=== PATIENT | female | born 1990 | race Caucasian/White ===

== ENCOUNTER 2022-01-20 10:28 | Outpatient (CLI) | payer OTHER, SELFPAY ==
[2022-01-20 12:21] LABS: Absolute Lymphocyte Count 3.44 X10^3/uL (0.83-4.51); Absolute Neutrophil Count 5.1 X10^3/uL (2.0-7.7); Basophil# 0.05 X10^3/uL; Basophil% 0.5 % (0-1); Eosinophil# 0.12 X10^3/uL; Eosinophils% 1.3 % (0-5); Hemoglobin 13.4 g/dL (12.0-15.0); Lymphocyte # 3.44 X10^3/ul (0.83-4.51); Lymphocyte % 36.8 % (19-41); Mean Corp Hgb Conc 32.7 g/dL (32-36); Mean Corpuscular Hgb 29.3 pg (27.0-32.0); Mean Corpuscular Volume 89.5 fL (81-99); Monocyte# 0.61 X10^3/uL; Monocyte% 6.5 % (0-10); NRBC Flagged by Analyzer 0 % (0-5); Neutrophil # 5.07 X10^3/uL (2.7-7.7); Neutrophil % 54.3 % (47-70); Platelet Count 377 K/mm3 (150-450); RBC Distribution Width CV 13.3 % (11.6-14.6); RBC Distribution Width SD 43.8 fl (35.1-43.9); Red Blood Count 4.58 M/mm3 (4.2-5.4); White Blood Count 9.4 K/mm3 (4.4-11.0)
[2022-01-20 12:41] LABS: Hemoglobin A1c 5.3 % (3.8-5.6)
[2022-01-20 13:04] LABS: AST(SGOT) 17 U/L (15-37); Alanine Aminotransfer ALT/SGPT 28 U/L (13-56); Albumin, Serum 3.9 g/dL (3.2-5.0); Alkaline Phosphatase 70 U/L (45-117); Anion Gap 6 (5-15); BUN 12 mg/dL (7-18); BUN/Creat Ratio 14.5 RATIO (10-20); Calcium,Total 9.5 mg/dL (8.5-10.1); Chloride 106 mmol/L (98-107); Cholesterol 215 mg/dL (200); Creatinine, Serum 0.83 mg/dL (0.55-1.02); EST Glomerular Filtration Rate 87 mL/min (>60); Est Glom Filt Rate - Afr Amer 105 mL/min (>60); Free T3 2.6 pg/mL (2.18-3.98); Globulin 3.9 g/dL (2.2-4.2); Glucose 93 mg/dL (74-106); High Density Lipoprotein 50 mg/dL; Potassium 4.3 mmol/L (3.5-5.1); Protein, Total 7.8 g/dL (6.4-8.2); Sodium Level 138 mmol/L (136-145); T4 Free Direct 0.82 ng/dL (0.76-1.46); Thyroid Stim Hormone (TSH) 1.76 uIU/mL (0.358-3.74); Triglycerides 110 mg/dL; Very Low Density Lipoprotein 22 mg/dL (5-40)
[2022-01-20 13:09] LABS: Vitamin D,25 Hydroxy 26.8 ng/mL
== END 2022-01-20 23:59 | disposition home or self-care (01) ==
PROVIDERS: PCP Internal Medicine; Referring Provider Internal Medicine; Visit Provider Internal Medicine
DX: F32.A Depression, unspecified (principal); F41.9 Anxiety disorder, unspecified; Z13.1 Encounter for screening for diabetes mellitus; Z13.220 Encounter for screening for lipoid disorders
CPT/HCPCS: 36415; 80053; 80061; 82306; 83036; 84439; 84443; 84481; 85025

== ENCOUNTER → 2023-10-07 | Outpatient (CLI) | payer BC, SELFPAY ==
[2023-10-11 10:09] LABS: Chlamydia By Nucleic Acid AMP Negative (Negative); Gonococcus By Nucleic Acid AMP Negative (Negative)
[2023-10-11 17:07] LABS: HPV APTIMA, High Risk Negative (Negative)
== END | disposition home or self-care (01) ==
LOC: LABSPEC 12:39
PROVIDERS: Referring Provider Advanced Practice Midwife; Visit Provider Advanced Practice Midwife
DX: Z34.90 Encounter for supervision of normal pregnancy, unspecified, unspecified trimester (principal)
CPT/HCPCS: 87086; 87491; 87591; 87624; 88175; G0145

== ENCOUNTER → 2023-11-04 | Outpatient (CLI) | payer BC, SELFPAY ==
[2023-11-04 11:14] LABS: Absolute Lymphocyte Count 2.67 X10^3/uL (0.83-4.51); Absolute Neutrophil Count 6.9 X10^3/uL (2.0-7.7); Basophil# 0.05 X10^3/uL; Basophil% 0.5 % (0-1); Eosinophil# 0.11 X10^3/uL; Hematocrit 35.8 % (37-47); Hemoglobin 11.9 g/dL (12.0-15.0); Lymphocyte # 2.67 X10^3/ul (0.83-4.51); Lymphocyte % 25.1 % (19-41); Mean Corp Hgb Conc 33.2 g/dL (32-36); Mean Corpuscular Hgb 29.4 pg (27.0-32.0); Mean Corpuscular Volume 88.4 fL (81-99); Mean Platelet Vol. 9.3 fl (6.2-12.0); Monocyte# 0.73 X10^3/uL; Monocyte% 6.9 % (0-10); NRBC Flagged by Analyzer 0 % (0-5); Neutrophil # 6.88 X10^3/uL (2.7-7.7); Neutrophil % 64.8 % (47-70); Platelet Count 299 K/mm3 (150-450); RBC Distribution Width CV 13.2 % (11.6-14.6); RBC Distribution Width SD 43.1 fl (35.1-43.9); Red Blood Count 4.05 M/mm3 (4.2-5.4); White Blood Count 10.6 K/mm3 (4.4-11.0)
[2023-11-04 11:29] LABS: Hemoglobin A1c 4.9 % (3.8-5.6)
[2023-11-04 11:49] LABS: NATERA MAILED SPECIMEN
--- OUTSIDE RECORDS SUMMARY | 2023-11-04 11:51 | XMS RPT_ITS | CCD ---
Author Name Unknown Address [address] [place] [address] Organization [facility] Care Team Providers Care Student Loan Counselor Name Role Phone Oumar Amin Primary Care Provider Pcp, No Primary Care Provider Unavailabl e Pcp, No Primary Care Provider Unavailabl e Eloisa FAUSTIN, Oumar Primary Care Provider Allergies Allergy Classification Reported Allergen(s) Allergy Type Date of Onset Reaction(s) Facility (4 sources) Seasonal allergy Propensity to adverse reactions to substance 10-30-2019 [facility] Work Phone: Medications Current Medications Medication Drug Class(es) Dates Sig (Normalized) Sig (Original) acetaminophen 325 mg oral tablet (2 sources) Start: 09-22-2020 take 650 mg by mouth every six hours as needed for pain, then take 4000 mg by mouth every twenty-four hours as needed for pain 650 mg, Oral, EVERY 6 HOURS PRN, Pain Mild (1-3), Starting 09/22/20 at 2131 Maximum dose of acetaminophen is 4000 mg from all sources in 24 hours. Completed/Discontinued Medications Medication Drug Class(es) Dates Sig (Normalized) Sig (Original) azithromycin 500 mg injection (1 source) Macrolide Antimicrobial Start: 09-22-2020 End: 09-22-2020 azithromycin (ZITHROMAX) 500 MG injection azithromycin (ZITHROMAX) 500 mg in dextrose 5 % 250 mL IVPB (add-vantage) (1 source) Start: 09-22-2020 End: 09-22-2020 azithromycin (ZITHROMAX) 500 mg in dextrose 5 % 250 mL IVPB (add-vantage) ceFAZolin 2000 mg injection (3 sources) Cephalosporin Antibacterial Start: 09-22-2020 End: 09-22-2020 ceFAZolin (ANCEF) 2 g in dextrose 4 % 100 mL IVPB (premix) Problems Active Problems Problem Classification Problem Date Documented Da te Episodic/Chronic Anxiety disorders (1 source) Anxiety; Translations: [Anxiety disorder affecting , antepartum] Onset: 03-12-2020 03-12-2020 Chronic Malposition; malpresentation (2 sources) Unstable lie; Translations: [Unstable lie, single or unspecified fetus] Onset: 08-27-2020 Resolved: 2020 2020 Episodic Other complications of ; puerperium affecting management of mother (7 sources) Indication for care AND/OR intervention in labor AND/OR delivery; Translations: [Indication for care in labor and delivery, antepartum] Onset: 04-20-2019 Resolved: 09-22-2020 01-30-2020 Episodic Other complications of (2 sources) Anxiety in ; Translations: [Anxiety disorder affecting , antepartum] Onset: 03-12-2020 03-12-2020 Other nutritional; endocrine; and metabolic disorders (3 sources) Body mass index 30+ - obesity; Translations: [BMI 30.0-30.9,adult] Onset: 01-30-2020 03-05-2020 Chronic Residual codes; unclassified (2 sources) H/O: section; Translations: [S/P section] 09-22-2020 Episodic Unclassified (8 sources) Patient encounter status; Translations: [ care, antepartum] Onset: 09-07-2018 Resolved: 2020 04-26-2019 Past or Other Problems Problem Classification Problem Date Documented Da te Episodic/Chronic Abdominal pain (6 sources) Acute abdominal pain; Translations: [Right upper quadrant pain] Onset: 08-01-2018 Resolved: 11-02-2018 11-02-2018 Episodic Biliary tract disease (4 sources) Biliary colic; Translations: [Calculus of gallbladder with acute cholecystitis] Onset: 08-02-2018 Episodic Diabetes mellitus without complication (5 sources) Abnormal glucose level; Translations: [Abnormal glucose affecting ] Onset: 01-19-2019 Resolved: 04-20-2019 04-26-2019 Episodic Hepatitis (3 sources) Acute hepatitis Onset: 08-01-2018 08-01-2018 Episodic Hypertension complicating ; childbirth and the puerperium (5 sources) Hypertension complicating , childbirth and the puerperium; Translations: [Gestational hypertension] Onset: 04-20-2019 Resolved: 04-20-2019 04-26-2019 Chronic Immunizations and screening for infectious disease (5 sources) Rubella non-immune ; Translations: [Rubella non-immune status, antepartum] Onset: 10-05-2018 Resolved: 04-20-2019 04-26-2019 Episodic Other complications of (3 sources) Maternal obesity complicating , childbirth and the puerperium, antepartum Onset: 09-07-2018 Resolved: 04-20-2019 04-26-2019 Chronic Other complications of (2 sources) Maternal obesity complicating , childbirth and the puerperium, antepartum; Translations: [Obesity affecting , antepartum] Onset: 09-07-2018 Resolved: 04-20-2019 04-26-2019 Episodic Other and delivery including normal (3 sources) Delivery normal 04-20-2019 Episodic Results Test Name Value Interpretation Reference Range Facil ity Vital Signs Date Time Vital Sign Value Performing Clinician Patito denny 2020 10:34-0500 Body Temperature 98.4 [degF] [place], [place] 2020 10:34-0500 BP Diastolic 80 mm[Hg] [place], [place] 2020 10:34-0500 BP Systolic 127 mm[Hg] [place], [place] 2020 10:34-0500 Pulse (Heart Rate) 98 /min [place], [place] 2020 10:34-0500 Pulse Oximetry 98 % [place], [place] 2020 10:34-0500 Respiratory Rate 20 /min [place] 09-22-2020 11:10-0500 BMI (Body Mass Index) 37.2 kg/m2 [place], [place] 09-22-2020 11:10-0500 Body weight 95.25 kg [place], [place] 09-22-2020 11:10-0500 Height 160 cm [place], [place] 07-01-2020 08:06-0400 Body Temperature 98.2 [degF] [facility] [employer], [place] 07-01-2020 08:06-0400 BP Diastolic 69 mm[Hg] [facility] [place] 07-01-2020 08:06-0400 BP Systolic 125 mm[Hg] [facility] [place] 07-01-2020 08:06-0400 Pulse (Heart Rate) 111 /min [facility] [employer] [facility] [place] 11-07-2019 19:00-0500 Body temperature 97.9 [degF] Emmett [facility]oz[employer] Work Phone: [employer] Work Phone: 11-07-2019 18:40-0500 Diastolic blood pressure 81 mm[Hg] Emmett Pozsgay DO Work Phone: [facility] Work Phone: 11-07-2019 18:40-0500 Heart rate 65 /min Emmett Pozsgay DO Work Phone: [facility] Work Phone: 11-07-2019 18:40-0500 Respiratory rate 16 /min Emmett Pozsgay DO Work Phone: [facility] Work Phone: 11-07-2019 18:40-0500 SaO2% (BldA) [Mass fraction] 100 % Emmett Pozsgay DO Work Phone: [facility] Work Phone: 11-07-2019 18:40-0500 Systolic blood pressure 132 mm[Hg] Emmett Pozsgay DO Work Phone: [facility] Work Phone: 11-07-2019 12:36-0500 Body height 160 cm Emmett Pozsgay DO Work Phone: [facility] Work Phone: 11-07-2019 12:36-0500 Body mass index (BMI) [Ratio] 31.89 kg/m2 Emmett Pozsgay DO Work Phone: [facility] Work Phone: 11-07-2019 12:36-0500 Body weight 81.65 kg Emmett Pozsgay DO Work Phone: [facility] Work Phone: 10-30-2019 08:06-0500 Body height 160 cm Emmett Pozsgay DO Work Phone: [facility] Work Phone: 10-30-2019 08:06-0500 Body mass index (BMI) [Ratio] 31.89 kg/m2 Emmett Pozsgay DO Work Phone: [facility] Work Phone: 10-30-2019 08:06-0500 Body temperature 97.81 [degF] Emmett Pozsgay DO Work Phone: [facility] Work Phone: 10-30-2019 08:06-0500 Body weight 81.65 kg Emmett Pozsgay DO Work Phone: [facility] Work Phone: 10-30-2019 08:06-0500 Diastolic blood pressure 76 mm[Hg] Emmett Pozsgay DO Work Phone: [facility] Work Phone: 10-30-2019 08:06-0500 Heart rate 110 /min Emmett Caryzsgay DO Work Phone: [facility] Work Phone: 10-30-2019 08:06-0500 SaO2% (BldA) [Mass fraction] 99 % Emmett Pozsgay DO Work Phone: [facility] Work Phone: 10-30-2019 08:06-0500 Systolic blood pressure 110 mm[Hg] Emmett Pozsgay DO Work Phone: [facility] Work Phone: Encounters Encounter Date Encounter Type Care Provider Facility Start: 09-22-2020 End: 2020 Evaluation and management of inpatient Shaun Taylor Work Phone: [facility] Procedures Date Procedure Procedure Detail Performing Clinician Start: 09-23-2020 Blood count hemoglobin Yas Lyle Work Phone: Start: 09-22-2020 Antibody id rbc antibodies ea panel ea serum tq Yas Lyle Work Phone: Start: 09-22-2020 RHO(D) IMMUNE GLOBULIN, Yas Lyle Work Phone: Start: 09-22-2020 Antibody id rbc antibodies ea panel ea serum tq Yas Lyle Work Phone: Start: 09-22-2020 Blood count complete automated Yas Lyle Work Phone: Start: 09-22-2020 Blood typing serologic abo Yas Lyle Work Phone: Start: 07-01-2020 Glucose tolerance test gtt 3 specimens Elicia Suggsmariantrae Work Phone: Start: 07-01-2020 Blood typing serologic rh (d) Elicia Schmidt Work Phone: Start: 07-01-2020 Blood count complete auto&auto difrntl wbc Elicia Schmidt Work Phone: Start: 07-01-2020 Comprehensive metabolic panel Elicia Roxana Work Phone: Start: 07-01-2020 MANUAL DIFFERENTIAL Elicia PrajapatiGodfrey Work Phone: Start: 11-07-2019 OPERATIVE REPORT 3m Scanning Start: 11-07-2019 Urine test visual color cmprsn meths Oliverio Jose C DO Work Phone: Start: 10-30-2019 Comprehensive metabolic panel Sharon Del Real PA-C Work Phone: Start: 10-11-2019 Us abdominal real time w/image documentation Oumar Amin MD Work Phone: Start: 08-13-2015 CONVERTED CYTOLOGY GIFT CONSULTANT Anh Bermudez Work Phone: History of cholecystectomy S/P laparoscopic cholecystectomy Emmett Cueto DO Work Phone: Plan of Treatment Date Care Activity Detail Author Start: 07-09-2030 DTaP/Tdap/Td vaccine (3 - Td) DTaP/Tdap/Td vaccine (3 - Td) [place], [place] Start: 02-08-2029 DTaP/Tdap/Td vaccine (2 - Td) DTaP/Tdap/Td vaccine (2 - Td) [facility] Work Phone: Start: 09-07-2021 Cervical cancer screen Cervical cancer screen [facility] Work Phone: Start: 09-07-2021 Screening for malignant neoplasm of cervix Cervical cancer screen [place], [place] Start: 11-04-2020 End: 11-04-2020 Visit 11/04/2020 Visit Obstetrics and Gynecology Shaun Taylor MD [address] [place] [address] [phone] [facility] PRINCIPAL BIOINFORMATICS SPECIALIST Start: 07-09-2020 End: 07-09-2020 Routine 07/09/2020 Routine Obstetrics and Gynecology Elicia Schmidt APRN - INDER [address] [place] [address] [phone] [facility] PRINCIPAL BIOINFORMATICS SPECIALIST Start: 07-01-2020 Influenza vaccination [place], [place] Start: 11-21-2019 End: 11-21-2019 Patient encounter procedure 11/21/2019 Office Visit Advanced Laparoscopic Surgery Dulce Kiser PA-C [address] [place] [address] [phone] [facility] [place] [facility] Start: 11-07-2019 End: 11-07-2019 Patient encounter procedure 11/07/2019 Appointment General Surgery Emmett Cueto DO [address] [place] [address] [phone] [facility] General [facility] Start: 10-16-2019 End: 10-16-2019 Patient encounter procedure 10/16/2019 Office Visit Advanced Laparoscopic Surgery Emmett Cueto, DO [address] [place] [address] [phone] [facility] [place] [facility] Start: 07-01-2019 Influenza vaccination Flu vaccine (#1) [facility] Work Phone: Start: 08-13-2018 PAP TESTING PAP TESTING [facility] Start: 2011 ONE PNEUMOVAX PRIOR TO AGE 65 ONE PNEUMOVAX PRIOR TO AGE 65 [facility] Start: 2011 Urine microalbumin profile DTAP,TDAP,TD (1 - Tdap) [facility] Start: 2010 HEPATITIS C SCREENING HEPATITIS C SCREENING [facility] Start: 2010 HIV SCREENING HIV SCREENING [facility] Start: 1998 Pneumococcal 0-64 years Vaccine (1 of 1 - PPSV23) Pneumococcal 0-64 years Vaccine (1 of 1 - PPSV23) [facility] Work Phone: Start: 1993 Varicella vaccine (1 of 2 - 2-dose childhood series) Varicella vaccine (1 of 2 - 2-dose childhood series) [facility] Work Phone: End: 11-07-2019 Blood glucose - POCT Blood glucose - POCT Point of Care Testing STAT One Time for 1 Occurrences starting 11/07/2019 until 11/07/2019 [facility] Work Phone: Immunizations Immunization Date Immunization Notes Care Provider Fa cility 09-22-2020 diphtheria, tetanus toxoids and acellular pertussis vaccine, unspecified formulation [facility] [place], [place] 09-22-2020 measles, mumps and rubella virus vaccine [facility] [place], [place] 09-22-2020 RHO(D) immune globulin - IM [facility] [place], [place] 07-09-2020 tetanus toxoid, reduced diphtheria toxoid, and acellular pertussis vaccine, adsorbed [facility] [place], [place] 07-01-2020 RHO(D) immune globulin - [facility] [place] 04-22-2019 measles, mumps and rubella virus vaccine Oumar Amin MD Work Phone: [facility] Work Phone: 02-08-2019 tetanus toxoid, reduced diphtheria toxoid, and acellular pertussis vaccine, adsorbed Oumar Amin MD Work Phone: [facility] Work Phone: NEGATED: Highlighted row has not occurred!04-22-2019 tetanus toxoid, reduced diphtheria toxoid, and acellular pertussis vaccine, adsorbed Oumar Amin MD Work Phone: [facility] Work Phone: Payers Date Payer Category Payer Unknown BCBS BCBS OUT OF STATE [id number] 2018-Present [address] [place] [address] [id number] 2018 Unknown BCBS BCBS OUT OF STATE xxxxxxxxxxxx 2018-Present [address] [place] [address] xxxxxxxxxxxx [id number] Social History Date Type Detail Facility Start: 06-06-2020 End: 09-22-2020 Tobacco [facility] Start: 06-06-2020 End: 09-22-2020 Tobacco use and exposure [facility] Start: 06-06-2020 End: 09-22-2020 Alcohol intake Ex-drinker (finding) [facility] Start: 10-04-2019 History SDOH Physica l Activity DPW 0 [facility] Work Phone: Start: 10-04-2019 History SDOH Stress 3 [facility] Work Phone: Start: 10-04-2019 History SDOH Education 17 [facility] Work Phone: Start: 10-04-2019 History SDOH Financial 5 [facility] Work Phone: Start: 10-04-2019 History SDOH Food Worry 1 [facility] Work Phone: Start: 10-04-2019 History SDOH Transpo rt Med 2 [facility] Work Phone: Start: 10-30-2019 Tobacco Comment occassional [employer] [facility] Work Phone: Start: 02-20-2018 Alcohol Comment socially [facility] Work Phone: Start: 01-01-2020 [facility] At Female [place] Sex Assigned At Not on file [facility] Work Phone: Exposure to SARS-CoV -2 (event) [facility] sure [facility] Start: 10-04-2019 Tobacco smoking stat [facility] Never smoker [employer] Work Phone: Start: 10-04-2019 End: 11-07-2019 Alcohol intake Current drinker of alcohol (finding) [employer] [facility] Work Phone: Start: 10-30-2019 End: 11-07-2019 Tobacco smoking status AKIS Current some day smoker [facility] Work Phone: Goals Date Patient Goal Desired Activity /State History of Present illness Narrative 11-07-2019 Rebecca Ramirez RN - 11/07/2019 7:14 PM Rebecca Witt RN - 11/07/2019 6:37 PM Meggan Peters RN - 11/07/2019 5:39 PM Meggan Peters RN - 11/07/2019 5:20 PM EST Note Date & Type Note Facility 11-07-2019 History of Present illness Narrative Discharge information given to the patient. Patient and family verbalized understanding of information. All questions were answered before discharge. Patient ambulated, denies dizziness or nausea. Tolerating PO fluids and crackers. Vital signs are stable. Patient has changed and is being discharged home in a wheelchair with valuables. Patient ambulated to bathroom, became nauseated. Paitent returned to bed without complicaions. Tolerating PO fluids and crackers. Vital signs are stable. Reviewed discharge instructions with pt and pt's . Verbalized understanding. Prescriptions given. back to bedside. Pt arrived to doctors hospital room 36 from OR. Assessed, vitals monitored and placed on tele. Pt able to communicate and follow commands. Pt asking if she can pump, family went downstairs to get pump at this time documented in this encounter [facility] Work Phone: Hospital Discharge instructions 11-07-2019 Instructions Note Date & Type Note Facility 11-07-2019 Hospital Discharg e instructions Luis Sol MD - 11/07/2019 DISCHARGE INSTRUCTIONS Thank you very much for allowing me to participate in your care, it is truly a privilege. Below please see discharge orders that will help you during your recovery. Please do not hesitate to call the office during the day at [phone] for any questions. After hours, the same number will allow you to reach the on-call surgeon. Please leave steri strips in place - despite what other paperwork may state. Clear bandages and gauze placed in the navel, if applicable may be removed in 5 days. If you have been provided with an abdominal binder, this is for your comfort. Please take this off in order to shower and use it as needed for your comfort. There is no designated time frame with which you should wear the binder. Again, it is only for your comfort and symptom relief. A thin shirt on your skin, under the binder, may add additional comfort and may help prevent skin irritation. It is OK to wash the binder Do not lift anything that is 15-20 pounds or greater for 2 weeks from the date of your surgery. This is to prevent herniation at your incision sites. We will address lifting restrictions at your first post op visit. Please shower the day after surgery. Soap and water is adequate. Steri strips may get wet. Pat incisions dry after showering. No lotions or ointments until you are seen in the office. Do not swim in a pool, go in a hot tub, or soak in a bathtub for the first week after your surgery. Surgery can hurt! Please make every effort to take the pain medicine as instructed to help reduce your discomfort. If you are a full sized adult and do not have a contraindication to taking tylenol or ibuprofen you can take a combination of these medicines as follows: 1000 mg Tylenol and 600 mg ibuprofen every 8 hours. I recommend that you do this combination every 8 hours for the first 3-5 days after your surgery even in the event that you do not have discomfort. Surgery is an inflammatory process and these medications will help decrease inflammation and pain. Do not wait until you have pain to take the combination of medications, it is hard to catch up once the pain begins. If you are prescribed [place] (vicodin) or Percoet, please note that these medications have tylenol in them. If you take a percocet simply do not take the 1000 mg tylenol, you may still take the ibuprofen. If you feel that the medicine is not working, please call the office. NO driving or operating dangerous machinery while taking Narcotics. Ice the incisions sites for 10-15 minutes at a time, then allowing 30 minutes for the skin to warm up. Continuous ice may cause damage to the skin. You may have had a TAP block. This is a numbing medication that the anesthesia team may have given you preoperatively. This block is great at reducing post operative pain, however, it may only last 24-48 hours. Again, I recommend that you take the combination of 1000 mg tylenol and 600 mg ibuprofen every 8 hours in order to ease into the transition of the TAP block wearing off. Should you have nausea after surgery you may have been prescribed nausea medication. Try taking the medicine and if you feel that the medicine is not working, please call the office. For any emergencies, please dial 911. Thank you again for allowing me to participate in your care, and get well soon! Dr. Emmett Cueto documented in this encounter [facility] Work Phone: Hospital Discharge instructions 10-30-2019 InstructionsAttachments Note Date & Type Note Facility 10-30-2019 Hospital Discharg e Brittney Martines RN - 10/30/2019 Shower with an antibacterial soap such as Dial or Safeguard. Please bring your [facility] Surgical Information folder on the day of surgery. Please emmett the last dose taken (date and time ) on your Daily Medications List provided in your After Visit Summary. Please bring a photo ID and insurance information TAKE the following medications the morning of your surgery: NONE You may take your prescription pain medications. You may take Tylenol (Acetaminophen) if needed for pain. No Motrin, Ibuprofen, or Advil 24 hours prior to surgery, or longer if instructed by your surgeon. No Aleve or Naprosyn 3 days prior to surgery, or longer if instructed by your surgeon. Do not take aspirin or aspirin containing products for 5 days before surgery. Follow all instructions given to you by Dr. NEWMAN You will receive a reminder call the day before surgery with your Same Day Surgery arrival time. If you have specific questions, please call your surgeon. You may use the free lpc parking at the main entrance on [address] [place] [address], or the free parking in the [facility] parking deck Please take the H elevator to the first floor- Same Day Surgery The following attachments cannot be sent through Care Everywhere.Cholecystectomy: Pre-op (Slovenian)documented in this encounter [facility] Work Phone: History of Present illness Narrative 10-30-2019 Mable Serrano MA - 10/30/2019 8:00 AM EST Note Date & Type Note Facility 10-30-2019 History of Present illness Narrative Labs obtained on 1st attempt with 22 gauge needle at [facility] site. Patient tolerated well, site benign. documented in this encounter [facility] Work Phone: Evaluation note Note Date & Type Note Facility documented in this encounter [facility] Work Phone: Evaluation note Note Date & Type Note Facility documented in this encounter [facility] Work Phone: Evaluation note Note Date & Type Note Facility documented in this encounter [facility] Work Phone: Summary Purpose Family History No Family History Records FoundNo Family History Records Found Advance Directives Documents on File Type Date Recorded Patient Clerical Assigner Expl anation ACP-Advance Directive ACP-Power of Rotary Soil Stabilizer Operator Latest Code Status on File Code Status Date Activated Date Inactivated Comments Full Code 11/07/2019 12:18 PM 11/07/2019 9:32 PM Full Code 04/21/2019 12:14 AM 04/22/2019 2:05 PM Full Code 04/20/2019 3:08 AM 04/21/2019 12:06 AM Full Code 08/01/2018 8:12 PM 08/02/2018 6:38 PM Latest Code Status on File Code Status Date Activated Date Inactivated Comments Full Code 09/22/2020 9:31 PM Full Code 09/22/2020 9:18 PM 09/22/2020 9:31 PM Full Code 09/22/2020 9:28 AM 09/22/2020 9:18 PM Full Code 11/07/2019 12:18 PM 11/07/2019 9:32 PM Documents on File Type Date Recorded Patient Clerical Assigner Expl anation Advance Directives and Living Will Power of Rotary Soil Stabilizer Operator Latest Code Status on File Code Status Date Activated Date Inactivated Comments Full Code 04/21/2019 12:14 AM 04/22/2019 2:05 PM Full Code 04/20/2019 3:08 AM 04/21/2019 12:06 AM Full Code 08/01/2018 8:12 PM 08/02/2018 6:38 PM Documents on File Type Date Recorded Patient Clerical Assigner Expl anation Advance Directives and Living Will Power of Rotary Soil Stabilizer Operator Latest Code Status on File Code Status Date Activated Date Inactivated Comments Full Code 04/21/2019 12:14 AM 04/22/2019 2:05 PM Latest Code Status on File Code Status Date Activated Date Inactivated Comments Full Code 11/07/2019 12:18 PM Hospital Course Note Obstetric Discharge Summary Fanta Patrick 09/22/2020 Reasons for Admission on 09/22/2020 8:49 AM Labor and delivery indication for care or intervention [O75.9] No comment available Section (Primary) Surgical Operations & Procedures: Delivery Type: with labor Laceration(s): n/a Delivery Complications: none Pertinent Findings & Procedures: Information for the patient's : Reno Patrick [[id number]] male Weight: 7 lb 10 oz (3.459 kg) Apgars: Information for the patient's : Reno Patrick [[id number]] One Minute : 8 Five Minute : 9 course normal. Blood Type/Rh: No results found for: ABORH Antibody Screen: Antibody Screen Date Value Ref Range Status 09/22/2020 POS NA Final Rubella: Lab Results Component Value Date RUBELLAIGG 69.9 03/05/2020 Discharge to: Home Contraception: no method : yes Meds: Fanta Patrick Home Medication Instructions DARREN:[id number] Printed on:09/24/20 1436 Medication Information docusate (more content not included)... Note OPERATIVE NOTE DATE OF PROCE DURE: 11/07/19 SURGEON: Emmett Cueto PHOTOCOPIER TECHNICIAN: resident PREOPERATIVE DIAGNOSIS: Chronic cholecystitis, cholelithiasis. POSTOPERATIVE DIAGNOSIS: Same, plus chronic cholecystitis OPERATION: Laparoscopic cholecystectomy ANESTHESIA: General anesthesia ESTIMATED BLOOD LOSS: less than 50 COMPLICATIONS: None SPECIMENS: Gallbladder PREOPERATIVE MEDICATIONS: ancef HISTORY: The patient is a 29 y.o. year old female with history of above preop diagnosis. I explained the risk, benefits, expected outcome, and alternatives to the procedure. Patient understands and is in agreement to proceed with operation. PROCEDURE: The patient was brought to the operating room and placed in supine position. After initiation of general anesthesia by the Anesthesia Department, the abdomen was prepped and draped normal sterile fashion. A Veress needle was placed in the left upper quadrant and insufflated without difficulty. We placed four 5 mm trocars, one in the left upper quadrant, 2 in t (more content not included)... Procedure Findings Note OPERATIVE NOTE DATE OF PROCE DURE: 11/07/19 SURGEON: Emmett Cueto PHOTOCOPIER TECHNICIAN: resident PREOPERATIVE DIAGNOSIS: Chronic cholecystitis, cholelithiasis. POSTOPERATIVE DIAGNOSIS: Same, plus chronic cholecystitis OPERATION: Laparoscopic cholecystectomy ANESTHESIA: General anesthesia ESTIMATED BLOOD LOSS: less than 50 COMPLICATIONS: None SPECIMENS: Gallbladder PREOPERATIVE MEDICATIONS: ancef HISTORY: The patient is a 29 y.o. year old female with history of above preop diagnosis. I explained the risk, benefits, expected outcome, and alternatives to the procedure. Patient understands and is in agreement to proceed with operation. PROCEDURE: The patient was brought to the operating room and placed in supine position. After initiation of general anesthesia by the Anesthesia Department, the abdomen was prepped and draped normal sterile fashion. A Veress needle was placed in the left upper quadrant and insufflated without difficulty. We placed four 5 mm trocars, one in the left upper quadrant, 2 in t (more content not included)... Discharge Instructions * Instructions* Krysten Kong, RN - 2020 After Your Delivery (the Period): Your Care Instructions Thank you for allowing us to care of you at [facility]. This time can be one of many emotional ups and downs and many changes in your life. In these first weeks try to take good care of yourself because you will likely feel very tired. It may take 4 to 6 weeks to feel like yourself again, and possibly longer if you had a . FOLLOW-UP: Your follow-up care is a jimenez part of your treatment and safety. Follow-up with your OB providerin 4weeks or as specified by your OB provider. If you had high blood pressure, visit your OB provider within 3-5 days after being home. Most women's blood pressure will return to pre- levels after delivery. However, some patients continueto have problems with their blood pressure, and some even get worse. Very high blood pressure can lead to seizures or stroke which can be life threatening. If ordered by your doctor, take your blood pressure at home and call your OB provider if you have a high reading. Your doctor can write you a prescription for a blood pressure monitor if you do not have one Be sure to make and go to all appointments, and call your OB provider if you are having problems. It's also a good idea to know your test results and keep a list of the medicines you take. BLEEDING Vaginal bleeding will decrease in amount over the next few weeks. Bleeding may strip picker and then decrease again around 7-10 days . Use pads instead of tampons for the bloody flow that may last as long as 2 weeks. You will notice that as your activity increases, your flow may increase. Call your provider if you are saturating one maxi pad in an hour & passing large clots for 3 hours or more. ACTIVITY NO SEXUAL activity for 6 weeks or until advised by your OB provider; Nothing in vagina: intercourse, tampons, or douching. Begin to think about your reproductive life plan. Talk to your OB provider about if and when you would like another baby in the future. The recommendation for safe spacing is 18-24 months. Showering is okay; NO tub baths, swimming, or hot tubs. Gradually increase your activity. Resume exercise regimen only after advised by your )OB provider. Avoid lifting anything heavier than ten pounds or a gallon of milk for six weeks. Avoid driving 1 week for vaginal delivery and 2 weeks for section, or longer if you are onprescription pain medicine unless otherwise instructed by your OB provider . Rise slowly from a lying to sitting and then a standing position. Climb stairs carefully. You may feel tired or have a lack of energy. You may continue your vitamin to replenish nutrients post-delivery. Nap when whenever you can to catch up on sleep. EMOTIONS You may feel simpson, sad, teary, & overwhelmed for the first 2 weeks ; however, feelings of depression may occur any time within the first year after delivery. Contact your OBprovider if you feel you may be showing signs of depression, or have thoughts of harmingyourself or or anyone.. WOUND CARE For Vaginal Delivery: Shower daily, and cleanse your perineum (bottom) with mild soap from front to back. Use the plasticsquirt bottle until bleeding stops each time you use the restroom instead of wiping with toilet paper. Ease soreness of hemorrhoids and the area between your vagina and rectum with ice compresses or witch elieser pads. If used, stitches will dissolve in 4-6 weeks on their own. You may use a sitz bath or soak in a clean tub with drain open and water running for comfort. Kegel exercises will help restore bladder control. To do these tighten your muscles as if you were stopping your urine flow. Hold for a few seconds and then relax. Do these throughout the day. For Section Delivery: Keep your incision clean and dry. If you had steri-strips you may remove these once they start falling off. If you have lia they need to be removed 3-10 daysafter delivery. If you have steri-strips, remove after 7 - 10 days. Do not wear clothing that irritates the incision line. If your incision is in a crease that is not dry, use a hair-dryer to dry the area 3 times a day. If you develop fever, shaking chills, redness, swelling, drainage or discharge from your wound, or if your wound looks like it is coming apart call your provider immediately. BREAST CARE If you develop a warm, red, tender area on your breast or develop a fever contact your OB provider.If your breasts become engorged ask your provider because treatment can vary according to your needs. DIET & CONSTIPATION Eat a well-balanced diet focusing on foods high in fiber and protein such as: whole grain cereals and breads, fruits and vegetables and legumes (eg, beans, lentils) Drink 8-10 glasses of fluids daily, especially water. Limit caffeine. To avoid constipation you may take a mild cszu-[id number]-[id number] stool softener (such as colace) as recommended by your OB provider. SWELLING Try to keep your legs elevated when you are sitting or lying down. Stay hydrated and take walks. If you had high blood pressure, weigh yourself at the same time each day. Write down your weight and take the record to your doctor appointment. MEDICATIONS Take all medications prescribed for you exactly as ordered. Don't take any drugs not prescribed to you or over the counter medicines unless recommended by yourprovider. Don't smoke. WHEN TO CALL THE OB PROVIDER Signs of infection, including fever and chills Increased bleeding: soaking more than one pad an hour or passing clots the size of an egg or larger. Wounds that become red, swollen or drain pus Vaginal discharge that smells foul New pain, swelling, or tenderness in your legs Pain that you can't control with the medications you've been given Pain, burning, urgency or frequency of urination, or persistent bleeding in the urine Cough, shortness of breath, or serious difficulty catching your breath Chest pain or pain in the upper right area of your belly Headache (very painful) or vision changes like blurry or double vision, seeing spots or 'auras' Swelling that is worse or weight gain of more than 3 pounds in 3 days Depression, suicidal thoughts, or feelings of harming someone else Breasts that are hot, red and accompanied by fever Any cracking or bleeding from the nipple or areola (the dark-colored area of the breast) You may have been given a magnet like this: If so, we encourage you to use it on your refrigerator as a reminder of when to call your OB provider. In case of an emergency, call 911 immediately. If you are Covid-19 positive or a Person Under Investigation (PUI) These could be signs that your COVID-19 symptoms are worsening and you may need emergency care: You are severely dizzy or lightheaded. You are confused or can't think clearly. Your face and lips have a blue color. You are unable to respond to others or are very hard to wake up. Prevention steps for People with confirmed or suspected COVID-19 (including persons under investigation) who do not need to be hospitalized and People with confirmed COVID-19 who were hospitalized and determined to be medically stable to go home Your healthcare provider and public health staff will evaluate whe ther you can be cared for at home. If it is determined that you do not need to be hospitalized and can be isolated at home, you willbe monitored by staff from your local or state health department. You should follow the prevention steps below until a healthcare provider or local or state health department says you can return to your normal activities. Stay home except to get medical care People who are mildly ill with COVID-19 are able to isolate at home during their illness. You should restrict activities outside your home, except for getting medical care. Do not go to work, school,or public areas. Avoid using public transportation, ride-sharing, or taxis. Separate yourself from other people and animals in your home People: As much as possible, you should stay in a specific room and away from other people in your home. Also, you should use a separate bathroom, if available. Animals: You should restrict contact with pets and other animals while you are sick with COVID-19, just like you would around other people. Although there have not been reports of pets or other animals becoming sick with COVID-19, it is still recommended that people sick with COVID-19 limit contactwith animals until more information is known about the virus. When possible, have another member ofyour household care for your animals while you are sick. If you are sick with COVID-19, avoid contact with your pet, including petting, snuggling, being kissed or licked, and sharing food. If you must care for your pet or be around animals while you are sick, wash your hands before and after you interact with pets and wear a facemask. Call ahead before visiting your provider If you have a medical appointment, call the healthcare provider and tell them that you have or may have COVID-19. This will help the healthcare provider's office take steps to keep other people from getting infected or exposed. Wear a facemask You should wear a facemask when you are around other people (e.g., sharing a room or vehicle) or pets and before you enter a healthcare provider's office. If you are not able to wear a facemask (for example, because it causes trouble breathing), then people who live with you should not stay in the same room with you, or they should wear a facemask if they enter your room. Cover your coughs and sneezes Cover your mouth and nose with a tissue when you cough or sneeze. Throw used tissues in a lined trash can. Immediately wash your hands with soap and water for at least 20 seconds or, if soap and water are not available, clean your hands with an alcohol-based hand wellness consultant that contains at least 60% alcohol. Clean your hands often Wash your hands often with soap and water for at least 20 seconds, especially after blowing your nose, coughing, or sneezing; going to the bathroom; and before eating or preparing food. If soap and water are not readily available, use an alcohol-based hand wellness consultant with at least 60% alcohol, covering all surfaces of your hands and rubbing them together until they feel dry. Soap and water are the best option if hands are visibly dirty. Avoid touching your eyes, nose, and mouth with unwashed hands. Avoid sharing personal household items You should not share dishes, drinking glasses, cups, eating utensils, towels, or bedding with otherpeople or pets in your home. After using these items, they should be washed thoroughly with soap and water. Clean all high-touch surfaces everyday High touch surfaces include counters, tabletops, doorknobs, bathroom fixtures, toilets, phones, keyboards, tablets, and bedside tables. Also, clean any surfaces that may have blood, stool, or body fluids on them. Use a household cleaning spray or wipe, according to the label instructions. Labels contain instructions for safe and effective use of the cleaning product including precautions you should take when applying the product, such as wearing gloves and making sure you have good ventilation during use of the product. Monitor your symptoms Seek prompt medical attention if your illness is worsening (e.g., difficulty breathing). Before seeking care, call your healthcare provider and tell them that you have, or are being evaluated for, COVID-19. Put on a facemask before you enter the facility. These steps will help the healthcare provider's office to keep other people in the office or waiting room from getting infected or exposed. Askyour healthcare provider to call the local or formerly [facility] health department. Persons who are placed underactive monitoring or facilitated self- monitoring should follow instructions provided by their localhealth department or occupational health professionals, as appropriate. When working with your local health department check their available hours. If you have a medical emergency and need to call 911, notify the dispatch personnel that you have, or are being evaluated for COVID-19. If possible, put on a facemask before emergency medical services arrive. Discontinuing home isolation Patients with confirmed COVID-19 should remain under home isolation precautions until the risk of secondary transmission to others is thought to be low. The decision to discontinue home isolation precautions should be made on a [id number] basis, in consultation with healthcare providers and [facility] health departments. Information on COVID-19 for all patients Call your provider before your next appointment if you develop any of the following symptoms: fever, cough, fatigue, anorexia, shortness of breath, sputum production, and muscle pains. Headache, confusion, rhinorrhea, sore throat, hemoptysis, vomiting, and diarrhea have been reported but are less common. Some persons with COVID-19 have experienced gastrointestinal symptoms such as diarrhea and nausea prior to developing fever and lower respiratory tract signs and symptoms. Ways to Ozone with Anxiety & Stress It is normal to feel anxious or worried about COVID-19. You might feel sad about canceling celebrations and staying away from family and friends. Keep in mind that most people do not get severely ill from COVID-19. It is important to have a planin case you get sick to prevent spreading the disease to others including an Advanced Care Plan (communicating and documenting your desired health care plan with family and healthcare team). You can take care of yourself by: ? Taking a break from watching the news ? Take deep breaths, stretch or meditate ? Getting exercise, eating healthy foods, and drinking plenty of water ? Finding activities you can enjoy inside your home ? Staying in touch with your family and friends. Tell your partner, family, and friends how you arefeeling. Advance Care Planning People with COVID-19 may have no symptoms, mild symptoms, such as fever, cough, and shortness of breath or they may have more severe illness, developing severe and fatal pneumonia. As a result, Advance Care Planning with attention to naming a health care decision maker (someone you trust to make healthcare decisions for you if you could not speak for yourself) and sharing other health care preferences is important BEFORE a possible health crisis. Please contact your Primary Care Provider to discuss Advance Care Planning. Learning About Coronavirus (COVID-19) Coronavirus (COVID-19): Overview What is coronavirus (COVID-19)? The coronavirus disease (COVID-19) is caused by a virus. It is an illness that was first found in [facility], in September 2019. It has since spread worldwide. The virus can cause fever, cough, and trouble breathing. In severe cases, it can cause pneumonia and make it hard to breathe without help. It can cause . Coronaviruses are a large group of viruses. They cause the common cold. They also cause more serious illnesses like [place] respiratory syndrome (MERS) and severe acute respiratory syndrome (SARS). COVID-19 is caused by a novel coronavirus. That means it's a new type that has not been seen in people before. This virus spreads aiviaw-jo-rswlhu through droplets from coughing and sneezing. It can also spreadwhen you are close to someone who is infected. It is always good practice to clean high touch surfaces frequently and avoid touching your mouth, nose and eyes until you have washed your hands if you touched these areas. What can you do to protect yourself from coronavirus (COVID-19)? The best way to protect yourself from getting sick is to: Wear a face mask. Avoid areas where there is an outbreak. Avoid contact with people who may be infected. Wash your hands often with soap or alcohol-based hand sanitizers. Avoid crowds and try to stay at least 6 feet away from other people. Wash your hands often, especially after you cough or sneeze. Use soap and water, and scrub for at least 20 seconds. If soap and water aren't available, use an alcohol-based hand wellness consultant. Call 911 anytime you think you may need emergency care. For example, call if: You have severe trouble breathing. (You can't talk at all.) You have constant chest pain or pressure. You are severely dizzy or lightheaded. You are confused or can't think clearly. Your face and lips have a blue color. You pass out (lose consciousness) or are very hard to wake up. Call your OB Provider now if you develop symptoms such as: Shortness of breath. Fever. Cough. If you need to get care, call ahead to the provider's office for instructions before you go. Make sure you wear a face mask, to prevent exposing other people to the virus. Where can you get the latest information? The following health organizations are tracking and studying this virus. Their websites contain themost up-to-date information. You'll also learn what to do if you think you may have been exposed tothe virus. U.[place]. Centers for Disease Control and Prevention (CDC): The CDC provides updated news about the disease and travel advice. The website also tells you how to prevent the spread of infection. www.cdc.gov World Health Organization (WHO): WHO offers information about the virus outbreaks. WHO also has travel advice. www.who.int Current as of: January 30, 2020 Content Version: 12.4 [employer]. Care instructions adapted under license by your healthcare professional. If you have questions about a medical condition or this instruction, always ask your healthcare professional. [employer] disclaims any warranty or liability for your use of this information. General Recommendations for Routine Cleaning and Disinfection of Households Community members can practice routine cleaning of frequently touched surfaces (for example: tables, doorknobs, light switches, handles, desks, toilets, faucets, sinks) with household chemical reclamation equipment operator and EPA-registered disinfectants that are appropriate for the surface, following label instructions. Labels contain instructions for safe and effective use of the cleaning product including precautions you should take when applying the product, such as wearing gloves and making sure you have good ventilation during use of the product. These guidelines are focused on household settings and are meant for the general public. ? Cleaning refers to the removal of germs, dirt, and impurities from surfaces. Cleaning does not kill germs, but by removing them, it lowers their numbers and the risk of spreading infection. ? Disinfecting refers to using chemicals to kill germs on surfaces. This process does not necessarily clean dirty surfaces or remove germs, but by killing germs on a surface after cleaning, it can further lower the risk of spreading infection. General Recommendations for Cleaning and Disinfection of Households with People Isolated in Home Care - Confirmed or suspected COVID 19 ? Household members should educate themselves about COVID-19 symptoms and preventing the spread of COVID-19 in homes. ? Clean and disinfect high-touch surfaces daily in household common areas (e.g. tables, hard-backedchairs, doorknobs, light switches, remotes, handles, desks, toilets, sinks) o In the bedroom/bathroom dedicated for an ill person: consider reducing cleaning frequency to as-needed (e.g., soiled items and surfaces) to avoid unnecessary contact with the ill person. ? As much as possible, an ill person should stay in a specific room and away from other people in their home. ? The caregiver can provide personal cleaning supplies for an ill person's room and bathroom, unless the room is occupied by child or another person for whom such supplies would not be appropriate. These supplies include tissues, paper towels, chemical reclamation equipment operator and EPA-registered disinfectants (see list link at CDC website). ? If a separate bathroom is not available, the bathroom should be cleaned and disinfected after each use by an ill person. If this is not possible, the caregiver should wait as long as practical after use by an ill person to clean and disinfect the high-touch surfaces. How to clean and disinfect: Hard Surfaces ? Wear disposable gloves when cleaning and disinfecting surfaces. Gloves should be discarded after each cleaning. If reusable gloves are used, those gloves should be dedicated for cleaning and disinfection of surfaces for COVID-19 and should not be used for other purposes. Consult the paint grinder's instructions for cleaning and disinfection products used. Clean hands immediately after gloves areremoved. ? If surfaces are dirty, they should be cleaned using a detergent or soap and water prior to disinfection. ? For disinfection, diluted household bleach solutions, alcohol solutions with at least 70% alcohol, and most common EPA-registered household disinfectants should be effective. o Diluted household bleach solutions can be used if appropriate for the surface. Follow paint grinder's instructions for application and proper ventilation. Check to ensure the product is not past itsexpiration date. Never mix household bleach with ammonia or any other cleanser. Unexpired householdbleach will be effective against coronaviruses when properly diluted. ? Prepare a bleach solution by mixing: ? 5 tablespoons (1/3rd cup) bleach per gallon of water or ? 4 teaspoons bleach per quart of water o Products with EPA-approved emerging viral pathogens [facility] ic[facility]xternal icon are expected to be effective against COVID-19 based on data for harder to kill viruses. Follow the paint grinder's instructions for all cleaning and disinfection products (e.g., concentration, application method and contact time, etc.). Soft (porous) surfaces such as carpeted floor, rugs, and drapes Remove visible contamination if present and clean with appropriate chemical reclamation equipment operator indicated for use on these surfaces. After cleaning: Launder items as appropriate in accordance with the paint grinder's instructions. If possible, launder items using the warmest appropriate water setting for the items and dry items completely, or Clothing, towels, linens and other items that go in the laundry ? Wear disposable gloves when handling dirty laundry from an ill person and then discard after eachuse. If using reusable gloves, those gloves should be dedicated for cleaning and disinfection of surfaces for COVID-19 and should not be used for other household purposes. Clean hands immediately after gloves are removed. o If no gloves are used when handling dirty laundry, be sure to wash hands afterwards. o If possible, do not shake dirty laundry. This will minimize the possibility of dispersing virus through the air. o Launder items as appropriate in accordance with the paint grinder's instructions. If possible, launder items using the warmest appropriate water setting for the items and dry items completely. Dirtylaundry from an ill person can be washed with other people's items. o Clean and disinfect clothes hampers according to guidance above for surfaces. If possible, consider placing a garbage stoker that is either disposable (can be thrown away) or can be laundered. [facility] [place] 2[place] has a list of EPA approved cleaning products on their website - https://www.cdc.gov/coronavirus/ 2019-ncov/community/home/cleaning-disinfection.html https://www.[employer]/Gaqul-Tneddyzohcd-Nagfubzt-Products-List.pdf Grocery Stores with delivery and strip picker services: [employer]: Free strip picker at locations Delivery is $12.95 a month Website - [employer] [place]: Hvac Controls Technician $2.95 (1st order is free) Delivery is $14.95 Website - [employer] [place]: liquefaction supervisor is free Delivery is $5.95 Website [employer]: liquefaction supervisor is $4.95 Delivery is $9.95 Website [employer]: liquefaction supervisor is $4.95 Delivery is $9.95 [employer]: Can be ordered for delivery and strip picker with [employer] Website - [employer]: Free deliver for first 3 orders of $35 or more Website [email or web address] Will deliver from [facility], [facility], [employer], and [employer]. Annual membership is $99 Monthly membership is $14 documented in this encounter History of Present Illness * Lori Solo DTR - 2020 10:32 AM EST Nutrition rescreen completed. Patient assigned a level 1. * Yvette Wagner MD - 2020 5:47 AM EST POST OPERATIVE DAY # 2 Fanta Patrick is a 30 y.o. female This patient was seen & examined today. Her was complicated by: Patient Active Problem List Diagnosis BMI 30.0-30.9,adult Anxiety disorder affecting , antepartum Plans CNM delivery Unstable lie S/P section Today she is doing well without any chief complaint. Her lochia is light. She denies chest pain, shortness of breath, headache, blurred vision and fever or cihlls. She is ambulating well. Flatus present. Bowel movement absent. Voiding spontaneously. She is tolerating solids. Pain is controlled yes. Vital Signs: Vitals: 09/23/20 0402 09/23/20 0757 09/23/20 1202 09/23/208 BP: (!) 100/58 (!) 96/56 (!) 98/58 115/78 Pulse: 92 93 73 89 Resp: 18 18 16 Temp: 98.3 F (36.8 C) 98.3 F (36.8 C) 98.4 F (36.9 C) 98.1 F (36.7 C) TempSrc: Temporal Temporal Temporal Temporal SpO2: 95% 95% 99% 98% Weight: Height: Urine Input & Output last 24hrs: Intake/Output Summary (Last 24 hours) at 2020 0547 Last data filed at 09/23/2020 0618 Gross per 24 hour Intake 300 ml Output 2000 ml Net -1700 ml Physical Exam: General: no apparent distress, alert and cooperative Affect: appropriate Lungs: No increased work of breathing, good air exchange Abdomen: abdomen soft, non-distended, non-tender Fundus: non-tender, normal size, firm, below umbilicus Incision: Clean, dry, and intact Extremities: no calf tenderness, non edematous Labs: Lab Results Component Value Date WBC 14.8 (H) 09/22/2020 HGB 10.4 (L) 09/23/2020 HCT 38.9 09/22/2020 MCV 88.6 09/22/2020 PLT 240 09/22/2020 O NEG Antibody Screen: Antibody Screen Date Value Ref Range Status 09/22/2020 POS NA Final Lab Results Component Value Date RUBELLAIGG 69.9 03/05/2020 LABOR DELIVERY ??? SCD's ONLY (labor through ambulation) SCD's PLUS Prophylactic Anticoagulation until discharge SCD's PLUS Prophylactic Anticoagulation for 6 weeks SCD's PLUS Therapeutic Anticoagulation for 6 weeks Vaginal Delivery [] BMI ? 40 kg/m2 Delivery All patients Vaginal Delivery [] BMI ? 40 kg/m2 AND [] Antepartum hospitalization ? 72 hours within the past month Delivery 1 Major Risk Factor: [x] BMI ? 35 kg/m2 [] Low Risk Thrombophilia [] PPH+RBCs, IR, or operation [] Infection+Antibiotics [] Antepartum hospitalization ? 72 hours within the past month [] PMH: Sickle Cell, SLE, Cardiac Dz, Active IBD, Active Cancer, Nephrotic Syndrome OR 2 Minor Risk Factors: [] Multiple gestation [] Age > 40 [] PPH ? 1,000cc [] (+)FMH of VTE [] Smoker [] Preeclampsia [] BMI ? 40 kg/m2 AND [] Low Risk Thrombophilia OR ANY OF THE FOLLOWING: [] High Risk Thrombophilia without prior VTE [] Low Risk Thrombophilia with (+)FMH of VTE [] Any single prior VTE ANY OF THE FOLLOWING: [] Already on LMWH/UFH [] Multiple prior VTE [] High Risk Thrombophilia with prior VTE Low Risk Thrombophilia: FVL (heterozygous), Prothrombin (heterozygous), Protein C, Protein S High Risk Thrombophilia: FVL (homozygous), Prothrombin (homozygous), FVL+Prothrombin (heterozygous), Antithrombin III, APLS Assessment/Plan: 1. Fanta Patrick is a POD # 2 s/p PLTCS 2/2 Cat II FHT 2. Care - Doing well, VSS - Male - Breast feeding - Contraception: Per private attending - VTE Prophylaxis: Prophylactic Dosing until Discharge 3. Anxiety -continue home zoloft -pt feeling well this AM 4. Disposition: Continue current care Based on my clinical assessment, this patient is safe for self discharge (does not need transport by wheelchair) if she so chooses. Provider's Name: MD Katya Long, 2020, 5:47 AM I reviewed and agree with the care provided by the resident/CNM during the visit including the patient's medical history, the resident's findings in the physical exam, patient's diagnosis and treatment plan. * Mandie Sorto RN - 09/23/2020 12:55 PM EST Several notes written as late entry on 09/23 at 1255 * Krysten Lyle MD - 09/23/2020 5:52 AM EST POST OPERATIVE DAY # 1 Fanta Patrick is a 29 y.o. female This patient was seen & examined today. Her was complicated by: Patient Active Problem List Diagnosis BMI 30.0-30.9,adult Anxiety disorder affecting , antepartum Plans CNM delivery Unstable lie S/P section Today she is doing well without any chief complaint. Her lochia is light. She denies chest pain, shortness of breath, headache, blurred vision and fever or chills. She is ambulating well. Flatus present. Bowel movement absent. Voiding spontaneously. She is tolerating solids. Pain is controlled yes. Vital Signs: Vitals: 09/22/20 1445 09/22/20 2100 09/22/20 2339 09/23/20 0402 BP: 125/76 104/63 (!) 100/58 Pulse: 125 98 86 92 Resp: 18 18 18 Temp: 96.2 F (35.7 C) 97.8 F (36.6 C) 98.3 F (36.8 C) TempSrc: Temporal Temporal Temporal SpO2: 94% 97% 95% Weight: Height: Urine Input & Output last 24hrs: Intake/Output Summary (Last 24 hours) at 09/23/2020 0552 Last data filed at 09/22/2020 1906 Gross per 24 hour Intake 4140 ml Output 3520 ml Net 620 ml Physical Exam: General: no apparent distress, alert and cooperative Affect: appropriate Lungs: No increased work of breathing, good air exchange Abdomen: abdomen soft, non-distended, non-tender Fundus: non-tender, normal size, firm, below umbilicus Incision: Dressing remains in place Extremities: no calf tenderness, non edematous Labs: Lab Results Component Value Date WBC 14.8 (H) 09/22/2020 HGB 13.1 09/22/2020 HCT 38.9 09/22/2020 MCV 88.6 09/22/2020 PLT 240 09/22/2020 O NEG Antibody Screen: Antibody Screen Date Value Ref Range Status 09/22/2020 POS NA Final Lab Results Component Value Date RUBELLAIGG 69.9 03/05/2020 LABOR DELIVERY ??? SCD's ONLY (labor through ambulation) SCD's PLUS Prophylactic Anticoagulation until discharge SCD's PLUS Prophylactic Anticoagulation for 6 weeks SCD's PLUS Therapeutic Anticoagulation for 6 weeks Vaginal Delivery [] BMI ? 40 kg/m2 Delivery All patients Vaginal Delivery [] BMI ? 40 kg/m2 AND [] Antepartum hospitalization ? 72 hours within the past month Delivery 1 Major Risk Factor: [x] BMI ? 35 kg/m2 [] Low Risk Thrombophilia [] PPH+RBCs, IR, or operation [] Infection+Antibiotics [] Antepartum hospitalization ? 72 hours within the past month [] PMH: Sickle Cell, SLE, Cardiac Dz, Active IBD, Active Cancer, Nephrotic Syndrome OR 2 Minor Risk Factors: [] Multiple gestation [] Age > 40 [] PPH ? 1,000cc [] (+)FMH of VTE [] Smoker [] Preeclampsia [] BMI ? 40 kg/m2 AND [] Low Risk Thrombophilia OR ANY OF THE FOLLOWING: [] High Risk Thrombophilia without prior VTE [] Low Risk Thrombophilia with (+)FMH of VTE [] Any single prior VTE ANY OF THE FOLLOWING: [] Already on LMWH/UFH [] Multiple prior VTE [] High Risk Thrombophilia with prior VTE Low Risk Thrombophilia: FVL (heterozygous), Prothrombin (heterozygous), Protein C, Protein S High Risk Thrombophilia: FVL (homozygous), Prothrombin (homozygous), FVL+Prothrombin (heterozygous), Antithrombin III, APLS Assessment/Plan: 1. Fanta Patrick is a POD # 1 s/p PLTCS 2/2 cat II FHT 2. Care - Doing well, VSS - Male - Breast feeding - Contraception: Per private attending - Encourage ambulation and use of incentive spirometer - D/C day catheter and saline lock IV on POD #1 - Postop Hb pending - VTE Prophylaxis: Prophylactic Dosing until Discharge 3. Anxiety -continue home Zoloft 5 mg daily -mood stable this AM 4. Disposition: Continue current care Based on my clinical assessment, this patient is safe for self discharge (does not need transport by wheelchair) if she so chooses. Provider's Name: MD Katya Long, 09/23/2020, 5:52 AM I reviewed and agree with the care provided by the resident/CNM/TAHIR during the visit including the patient's medical history, the resident's findings in the physical exam, patient's diagnosis and treatment plan. Patient wishes to have her son circumcised. Risks and benefits of circumcision explained to mother,including discussion that it is an elective procedure. Risks including, but limited to, bleeding, infection, removing too much or too little skin, need for revision later in life. All questions answered. Informed consent obtained. Krysten Lyle MD 09/23/2020, 7:53 AM * Shaun Taylor MD - 09/22/2020 3:53 PM EST Late entry note: Patient has now had multiple, prolonged delegations and recurrent deep variable decelerations. I suspect distress, with possible cord compression or placental compromise. Her cervix was still 5cm. I recommended urgent CS for distress remote from delivery. Discussed R/B/A. She states understanding of our entire conversation. All her questions were answered to her stated satisfaction. She wants to proceed with CS. * Neyda Antonio RCP - 09/22/2020 3:20 PM EST This RT paged to OR-1 for Code PINK. Upon arrival baby was being placed on the warmer and was crying. This RT dry/warmed/stimmed. Baby was bulb suctioned from mouth and nose. No further intervention needed by SCN team. Care transferred to L&D nurse. Katelynn Jiménez APRN - CNM - 09/22/2020 2:40 PM EST Late entry d/t patient care: Continuing variable decels that are deepening. Dr Taylor in to discuss with patient recommendation for primary . Care transferred to Dr Taylor at this time and patient moved back to the OR. Katelynn Yuen APRN - CNM - 09/22/2020 2:24 PM EST Late entry d/t patient care: FHR prolonged decel at 1353 to 70s-80s x7 minutes with several instances of recovery during. Position changed. FHR recovered in knee-chest. Fluid bolus running, O2 on. Dr Taylor @ BS and aware. Currently, baseline 130, mod variability, pos accels, recurrent variables. Will start amnioinfusion at this time. * Katelynn Stiles APRN - CNM - 09/22/2020 1:48 PM EST 09/22/2020 at 1:48 PM INDER LABOR PROGRESS NOTE Subjective: Patient is doing well with contractions. Family is supportive and present at the bedside. Contraction pain is none. Epidural Yes Patient continues to have variables. BP has been dosed several times by anesthesia. IUPC placed with exam. Objective: Vital Signs: Reviewed in OBTV; afebrile FHR: Baseline: 130 Variability: moderate Accels: present Decels: Variable, recurrent Contraction Frequency: Every 3 to 4 minutes Cervical Exam: 5 cm, 80%, -3 station Membranes: are Ruptured clear fluid, minimal amount noted at last exam Pitocin: no Assessment: Fanta Patrick is a 29 y.o. female 39w6d Latent labor Heart Rate: Category 2, overall reassuring GBS negative, No indication for GBS prophylaxis Plan: 1. Support 2. Clear liquid diet 3. continuous monitoring 4. Encourage rest 5. Frequent position changes 6. Continue management 7. Discussed with Dr. Taylor, who is in-house at the moment ELIECER V[place] CNM 09/22/2020 1:48 PM 09/22/2020 at 1:48 PM * Shaun Taylor MD - 09/22/2020 1:20 PM EST I was consulted by INDER for prolonged heart rate deceleration. It lasted 6 minutes. Returned to normal baseline. Currently 135, moderate variability, +accelerations, +variable decelerations. Overall reassuring. Patients as noted to he hypotensive during deceleration. Terb and position changes were also used. I reviewed the labor course with the patient. I reviewed the potential need for CS if she has repetitive prolonged decelerations. I also reviewed the potential need for operative vaginal delivery if there is distress in the second stage of labor. I reviewed R/B/A for each. I will be on standby if needed. * Yas Lyle MD - 09/22/2020 12:41 PM EST Labor Progress Note Date: 09/22/2020 Time: 12:41 PM Subjective: Fanta Patrick is a 29 y.o. female at 39w6d AOL-PROM. In to assist CNM for 6 min prolonged decel into 80s. SVE 5/80/-2 per CNM. Patient repositioned to hands and knees, fluid bolus given, O2 placed and terb given at 12:36. Dr. Taylor updated and in route. FHT now recovered to baseline with moderate variability and accels. Cx:5/80/-3 per CNM FHT: Cat II [place]:none/not tracing A/P: 1. AOL-PROM Cat II for spontaneous decels since prolonged decel. Unable to determine type due to lack of contraction tracing. Overall reassuring with moderate variability. Single mild range BP since admission. CNM in house managing, will continue to follow peripherally. CCM Late note due to patient care. Safety huddle performed by Dr. Taylor to proceed with PCD for Cat II FHT. Patient now with recurrent prolonged decels into the 60s-70s. SVE by CNM unchanged at 5cm. Patient consented by Dr. Taylor for PCD. Anesthesia aware and in room. Prior to disconnecting patient from monitor to move back to OR, FHT was back down to 60s. Dr. Taylor aware and in house. * Katelynn Stiles APRN - INDER - 09/22/2020 12:40 PM EST Late entry d/t patient care: FHR down to 80s x7 minutes. Position changed, IV bolus was already running, O2 on, terbutaline administered. BP back to baseline. Dr Taylor was not in-house, so he was called, and is en route. * Katelynn Stiles APRN - CNM - 09/22/2020 12:26 PM EST 09/22/2020 at 12:26 PM INDER LABOR PROGRESS NOTE Subjective: Patient is doing well with contractions. Family is supportive and present at the bedside. Contraction pain is mild, just rec'd epidural. Epidural Yes Patient has had several late decels & variable decels. BP was decreased s/p epidural. Medication administered by anesthesia. Will continue to monitor. VE done and FSE placed during exam. Objective: Vital Signs: Reviewed in OBTV; afebrile FHR: Baseline: 140 Variability: moderate Accels: present Decels: late Contraction Frequency: Every 3 to 4 minutes Cervical Exam: 4 cm, 80%, -3 station Membranes: are Ruptured clear fluid Pitocin: no Assessment: Fanta Patrick is a 29 y.o. female 39w6d Latent labor Heart Rate: Category 2 GBS negative, No indication for GBS prophylaxis Plan: 1. Support 2. Clear liquid diet 3. continuous monitoring 4. Encourage rest 5. Frequent position changes 6. Continue management 7. Reassess in 2 hrs or PRN ELIECER [place] CNM 09/22/2020 12:26 PM 09/22/2020 at 12:26 PM * Yas Lyle MD - 09/22/2020 9:24 AM EST Department of Obstetrics and Gynecology Labor and Delivery Triage Note CHIEF COMPLAINT: Leaking fluid HISTORY OF PRESENT ILLNESS: The patient is a 29 y.o. 39w6d. OB History 2 Para 1 Term 1 AB Living SAB TAB Ectopic Molar Multiple Live Births Estimated Due Date: Estimated Date of Delivery: 09/23/20 REVIEW OF SYSTEMS: Pertinent items are noted in HPI. APPEARANCE: Pain: no PHYSICAL EXAM: Vital Signs: VS wnl-reviewed/Respirations normal effort Vitals: 09/22/20 0908 09/22/20 0910 09/22/20 0912 09/22/20 0913 BP: 115/75 Pulse: 107 95 Resp: 20 Temp: 98.5 F (36.9 C) Weight: 210 lb (95.3 kg) Height: 5' 3 (1.6 m) Speculum Exam: pooled fluid appearing clear, Nitrizine test is positive heart rate: Category I Cervix: 3/70/-3 Membranes: Ruptured clear fluid BSUS: Vertex presentation IMPRESSION: Leaking fluid-ROM,clear DISCUSSED WITH PNC PROVIDER: INDER Stiles DISPOSITION: Admit to L&D documented in this encounter Assessments Diagnosis Unstable lie, single or unspecified fetus care, antepartum Anxiety disorder affecting , antepartum BMI 30.0-30.9,adult Body Mass Index 30.0-30.9, adult S/P section Other postprocedural status Labor and delivery indication for care or intervention Unspecified indication for care or intervention related to labor and delivery, unspecified as to episode of care Reason for Referral Status Reason Specialty Diagnoses / Procedures Referre d By Contact Referred To Contact [facility]iology Diagnoses Biliary colic RUQ abdominal pain Procedures US Abdomen Complete Oumar Amin MD [address] [place] [address] Additional Source Comments INFORMATION SOURCE (unrecogn ized section and content) DATE CREATED AUTHOR AUTHOR'S ORGANIZ ATION 10/02/2020 [facility] Source Comments (unrecognize d section and content) In the event this informatio n is protected by the Federal Confidentiality of Alcohol and Drug Abuse Patient Records regulations: The Federal rules restrict any use of the information to criminally investigate or prosecute any alcohol or drug abuse patient.[facility] Reason for Visit (unrecogniz ed section and content) FOR RECORDS PERTAINING TO PATIENTS WHO ARE OR HAVE BEEN ENROLLED IN A CHEMICAL DEPENDENCY/SUBSTANCEABUSE PROGRAM, SOME INFORMATION MAY BE OMITTED. This clinical summary was aggregated from multiple sources. Caution should be exercised in using it in the provision of clinical care. This summary normalizes information from multiple sources, and as a consequence, information in this document may materially change the coding, format and clinical context of patient data. In addition, data may be omitted in some cases. CLINICAL DECISIONS SHOULD BE BASED ON THE PRIMARY CLINICAL RECORDS. [facility] [employer] provides no warranty or guarantee of the accuracy or completeness of information in this document.
[2023-11-04 12:15] LABS: HIV - WCH Non-Reactive (Nonreactive); Hepatitis B Surface Antigen Non-Reactive (Nonreactive); Hepatitis C Antibody Non-Reactive (Nonreactive); Rubella IgG Reactive (Nonreactive); Syphilis Antibodies Non-reactive
== END | disposition home or self-care (01) ==
LOC: LAB 10:37
PROVIDERS: Referring Provider Advanced Practice Midwife; Visit Provider Advanced Practice Midwife
DX: Z34.01 Encounter for supervision of normal first pregnancy, first trimester (principal); E66.3 Overweight
CPT/HCPCS: 83036; 85025; 86703; 86762; 86780; 86803; 86850; 86900; 86901; 87340

== ENCOUNTER → 2024-01-10 | Outpatient (CLI) | payer BC, SELFPAY ==
--- NOTE | 2024-01-10 15:06 | US_ITS ---
STUDY: SECOND AND THIRD TRIMESTER OBSTETRICAL ULTRASOUND REASON FOR EXAM: Female, 33 years old . anatomy. LMP: August 09, 2023. TECHNIQUE: Transabdominal and Transvaginal TECHNICAL QUALITY: Adequate. PRIOR ULTRASOUND: None. FINDINGS: There is a single intrauterine fetus. The fetus is in a breech presentation. There is demonstrated cardiac activity with a heart rate of 141 bpm. There is a normal amniotic fluid volume. The largest amniotic fluid pocket measures 6 cm x 4.2 cm. The amniotic fluid index (ELIOT) is within normal limits. The placenta is anterior in location and is not low lying. There are Grade 0 placental changes. The cervix measures 4.3 cm in length. The adnexal regions are not visualized. BIOMETRY: BPD: 5.54 cm: 22 weeks, 6 days HC: 21.43 cm: 23 weeks, 3 days AC: 17.83 cm: 22 weeks, 5 days FL: 3.76 cm: 22 weeks, 0 days CI: 71.84 FL/BPD: 68 FL/HC: FL/AC: 21.11 HC/AC: 1.2 age by current US: 22 weeks, 5 days. ANDI by current US: May 10, 2024. Estimated weight: 510 grams, +/- 76 grams, 70 %. Age by LMP: 22 weeks, 0 days. ANDI by LMP: May 15, 2024. ANATOMY: Gender: Male Cranium: Normal lateral ventricles. Normal choroid plexus. Normal cerebellum. Normal cisterna magna. Normal face, nose and lips. Chest: Normal 4-chamber heart. Abdomen/Pelvis: Normal diaphragm. Normal stomach. Normal abdominal wall. Normal cord insertion. Normal 3 vessel cord. Normal kidneys. Normal bladder. Spine: Normal cervical spine. Normal thoracic spine. Normal lumbar spine. Normal sacrum. Extremities: Normal bilateral upper extremities. Normal bilateral lower extremities. US/OB Anatomy w/ Transvaginal IMPRESSION: Single live intrauterine gestation with mean gestational age of 22 weeks and 5 days. Electronically Signed: Zaid Alston MD at 15:23 EDT ,
== END | disposition home or self-care (01) ==
LOC: US 15:56
PROVIDERS: Referring Provider Obstetrics & Gynecology; Visit Provider Obstetrics & Gynecology
DX: O09.90 Supervision of high risk pregnancy, unspecified, unspecified trimester (principal); Z3A.00 Weeks of gestation of pregnancy not specified
CPT/HCPCS: 76805; 76817

== ENCOUNTER → 2024-03-01 | Outpatient (CLI) | payer BC, SELFPAY ==
[2024-03-01 09:00] LABS: Hematocrit 32.3 % (37-47); Hemoglobin 10.4 g/dL (12.0-15.0); Mean Corp Hgb Conc 32.2 g/dL (32-36); Mean Corpuscular Hgb 28.7 pg (27.0-32.0); Mean Platelet Vol. 10.1 fl (6.2-12.0); POSITIVE COUNT YES; POSITIVE MORPHOLOGY YES; Platelet Count 215 K/mm3 (150-450); RBC Distribution Width CV 14.4 % (11.6-14.6); RBC Distribution Width SD 46.3 fl (35.1-43.9); Red Blood Count 3.63 M/mm3 (4.2-5.4); White Blood Count 12.3 K/mm3 (4.4-11.0)
[2024-03-01 09:06] LABS: Differential Indicated MANUAL DIFF
[2024-03-01 09:07] LABS: Glucose Challenge Gest 1H 50g 140 mg/dL (70-140)
[2024-03-01 09:41] LABS: HIV - WCH Non-Reactive (Nonreactive); Syphilis Antibodies Non-reactive
[2024-03-01 09:59] LABS: Eosinophil 1 % (0-5); Lymphocyte 25 % (19-41); Monocyte 5 % (0-10); Myelocyte 3 % (0-0); Neutrophil-Band 5 % (0-5); Neutrophil-Segmented 61 % (47-70); Total Cells Counted 100 (MANUAL DIFF)
[2024-03-01 10:00] LABS: Platelet Estimate ADEQUATE (ADEQ); Red Cell Morphology NORM C+C NORMAL (NORM C&C)
[2024-03-01 10:01] LABS: Absolute Lymphocyte Count 3.08 X10^3/uL (0.83-4.51); Absolute Neutrophil Count 8.1 X10^3/uL (2.0-7.7)
[2024-03-02 14:32] LABS: Pathologist Review Reviewed
== END | disposition home or self-care (01) ==
LOC: PAVLAB 08:31
PROVIDERS: Referring Provider Obstetrics & Gynecology; Visit Provider Obstetrics & Gynecology
DX: O09.90 Supervision of high risk pregnancy, unspecified, unspecified trimester (principal); Z3A.00 Weeks of gestation of pregnancy not specified; Z13.1 Encounter for screening for diabetes mellitus
CPT/HCPCS: 36415; 82950; 85025; 86703; 86780; 86850; 86900; 86901

== ENCOUNTER → 2024-03-19 | Outpatient (CLI) | payer BC, SELFPAY ==
[2024-03-19 07:08] LABS: Bedside Glucose 76 mg/dL (74-106)
[2024-03-19 08:31] LABS: Glucose GTT-Gestation. Fasting 77 mg/dL (<105)
[2024-03-19 08:39] LABS: Glucose GTT-Gestational 1 Hr 180 mg/dL (<190)
[2024-03-19 10:13] LABS: Glucose GTT-Gestational 2 Hr 136 mg/dL (<165)
[2024-03-19 11:03] LABS: Glucose GTT-Gestational 3 Hr 93 L (<145)
== END | disposition home or self-care (01) ==
LOC: LAB 06:39
PROVIDERS: Referring Provider Obstetrics & Gynecology; Visit Provider Obstetrics & Gynecology
DX: Z13.1 Encounter for screening for diabetes mellitus (principal)
CPT/HCPCS: 36415; 82951; 82952; 82962

== ENCOUNTER → 2024-04-25 | Outpatient (CLI) | payer BC, SELFPAY ==
--- NOTE | 2024-04-25 08:21 | US_ITS ---
STUDY: SECOND AND THIRD TRIMESTER OBSTETRICAL ULTRASOUND - LIMITED REASON FOR EXAM: Female, 33 years old measuring large for dates LMP: August 09, 2023. PRIOR ULTRASOUND: Comparison is made with prior study dated January 10, 2024. TECHNIQUE: Transabdominal TECHNICAL QUALITY: Adequate. FINDINGS: There is a single intrauterine fetus. The fetus is in a cephalic presentation. There is demonstrated cardiac activity with a heart rate of 136 bpm. There is a normal amniotic fluid volume. The largest amniotic fluid pocket measures 5.7 cm x 3.4 cm. The amniotic fluid index (ELIOT) is 16.7 cm. The placenta is anterior in location and is not low lying. There are Grade 3 placental changes. BIOMETRY: BPD: 9.2 cm: 37 weeks, 2 days HC: 34.48 cm: 39 weeks, 6 days AC: 35.63 cm: 39 weeks, 4 days FL: 7.3 cm: 37 weeks, 3 days Age by LMP: 37 weeks, 1 days. ANDI by LMP: May 15, 2024. age by prior US: 37 weeks, 6 days. ANDI by prior US: May 10, 2024. age by current US: 38 weeks, 4 days. ANDI by current US: May 05, 2024. Estimated weight: 3581 grams, +/- 537 grams, 90 percentile. US/OB Limited With Biometrics IMPRESSION: Single live uterine gestation with mean gestational age of 37 weeks and 6 days. The measurements obtained today fall within normal expected range. Electronically Signed: Zaid Alston MD at 9:29 EDT ,
== END | disposition home or self-care (01) ==
LOC: US 08:20
PROVIDERS: Referring Provider Obstetrics & Gynecology; Visit Provider Obstetrics & Gynecology
DX: O99.810 Abnormal glucose complicating pregnancy (principal); Z3A.00 Weeks of gestation of pregnancy not specified
CPT/HCPCS: 76816

== ENCOUNTER → 2024-05-01 | Outpatient (CLI) | payer BC, SELFPAY ==
[2024-05-01 09:15] LABS: Glucose Challenge Gest 1H 50g 150 mg/dL (70-140)
== END | disposition home or self-care (01) ==
LOC: LAB 07:56
PROVIDERS: Referring Provider Obstetrics & Gynecology; Visit Provider Obstetrics & Gynecology
DX: Z13.1 Encounter for screening for diabetes mellitus (principal)
CPT/HCPCS: 36415; 82950

== ENCOUNTER → 2024-05-04 | Outpatient (CLI) | payer BC, SELFPAY | END | disposition home or self-care (01) | LOC: LABSPEC 05-07 08:27 | PROVIDERS: Visit Provider Obstetrics & Gynecology | DX: Z34.00 Encounter for supervision of normal first pregnancy, unspecified trimester (principal) | CPT/HCPCS: 87081 ==

== ENCOUNTER 2024-05-15 05:18 | Inpatient (IN) | payer BC, SELFPAY ==
[2024-05-15] VITALS (19 sets, daily range): BP systolic 96–124; BP diastolic 54–90; PULSE 75–103; RESP 14–20; TEMP 36.1–36.6; O2SAT 97–100; BMI 37.0
[2024-05-15] MEDS: Lactated Ringers 1,000 ML 999 ML IV ×2 (05:35→12:24)
[2024-05-15 06:00] LABS: Hematocrit 37.1 % (37-47); Hemoglobin 12.1 g/dL (12.0-15.0); Mean Corp Hgb Conc 32.6 g/dL (32-36); Mean Corpuscular Hgb 28.7 pg (27.0-32.0); Mean Corpuscular Volume 87.9 fL (81-99); Mean Platelet Vol. 10.1 fl (6.2-12.0); POSITIVE COUNT YES; POSITIVE MORPHOLOGY YES; Platelet Count 213 K/mm3 (150-450); RBC Distribution Width CV 15.1 % (11.6-14.6); RBC Distribution Width SD 48.5 fl (35.1-43.9); Red Blood Count 4.22 M/mm3 (4.2-5.4); White Blood Count 15.1 K/mm3 (4.4-11.0)
[2024-05-15 06:04] LABS: Differential Indicated MANUAL DIFF
[2024-05-15] MEDS: Lactated Ringers 1,000 ML 150 ML IV (06:09)
[2024-05-15] MEDS: Acetaminophen 500 MG Tablet 1000 MG PO ×3 (06:09→23:57)
[2024-05-15] MEDS: Sodium Citrate/Citric Acid 30 ML UDC PO (06:09)
[2024-05-15 06:53] LABS: Lymphocyte 23 % (19-41); Metamyelocyte 1 % (0-1); Monocyte 3 % (0-10); Myelocyte 2 % (0-0); Neutrophil-Band 2 % (0-5); Neutrophil-Segmented 69 % (47-70); Total Cells Counted 100 (MANUAL DIFF)
[2024-05-15 06:54] LABS: Absolute Neutrophil Count 10.7 X10^3/uL (2.0-7.7); Reactive Lymphocyte 2+
[2024-05-15 06:55] LABS: Absolute Lymphocyte Count 3.47 X10^3/uL (0.83-4.51)
--- NOTE | 2024-05-15 07:22 | HP.PCM.OB_ITS ---
HPI - General General Date of Admission: 05/15/24 HPI Narrative TOYA BONDS, is a 33 y/o @ 40 weeks who presents to L&D for repeat section Maternal Data Information ANDI Calculator Estimated Delivery Date Method Current WG Current Estimate 05/15/24 LMP (Certain) 40w 0d PFSH PFSH Medical History (Updated 05/15/24 @ 05:49 by Malka Wilkins) Anemia affecting Anemia affecting depression Seasonal allergies Laceration of right little finger w/o foreign body w/o damage to nail Laceration of right ring finger Overweight Jaw cyst Cholecystectomy planned Home Medications ?Medication ?Instructions ?Recorded ?Last Taken ?Type Bacillus coagulans 800 million 1 cell PO DAILY 01/20/22 05/14/24 History cell tablet (Digestive Advantage Probiotics-Prebiotic) multivit-min no.71-iron fum 28 1 cap PO DAILY pregnancyy 09/30/23 Unknown History mg-folate no.1 1 mg-dha 300 mg capsule (PNV-[place]) Allergy/AdvReac Type Severity Reaction Status Date / Time No Known Allergies Allergy Verified 05/15/24 05:49 Family History Grandmother Cancer, Onset Age: 47 maternal- lung ca Grandmother Cancer paternal- Uterine? Mother Hypertension Other COPD (chronic obstructive pulmonary disease) Diabetes Seizures Uterine cancer Surgical History History of tonsillectomy and adenoidectomy [place] teeth extracted Hx of cholecystectomy Social History adopted: No household members: spouse and children number of children: 2 current occupation: [employer] current occupational exposures/hazards: No pets and animals: Yes pets and animals: dog(s) history of recent travel: [place] ([place] - [place]) out of state: Yes out of country: No sexually active: Yes Smoking Status: Former smoker how long ago did patient quit smokin-4 yrs alcohol intake: current alcohol intake frequency: a few times a week details: social not while substance use type: does not use well-balanced diet: daily or most days caffeine: No eating out: rarely or never during the past year weight has: decreased > 10 lbs what type of physical activity do you participate in: yoga frequency: 1-2 times per week duration: 15-30 minutes/day lalit/jainism: Bahai seatbelt use: always do you feel safe at home: Yes additional social history: Luis[employer] History 3 Elective abortions Hx Para 2 Spontaneous abortions Hx # Term Pregnancies Ectopic pregnancies Hx # Pregnancies Multiple births # of living children 2 Past Pregnancies Del. Date Name GA/Weeks Outcome Route Bth Weight Gen Labor Lgth Anesthesia Del Locatn Provider FOB 04/20/19 Betsy 40 live - full term 7#8oz Female 28 Hrs epidural [facility] Dist[employer] Luis 09/22/20 Baldomero 40 live - full term 7#10oz Male [address] H [address] [facility]Kovak Smith Delivery Date: 09/22/20 Last Updated by: Ana Lilia Franco cord around neck, no fluid, pt BP dropped Visit Details Expected Delivery Route/Plan Labor Preferences- CB/BF classes: [] labor support person: [] labor intervention preferences: [] pain management options preferred: open to epidural cut cord/dad catch: [] : [] PP control planned: [] discussed possible routes of delivery and associated risks: [] special requests: [] patient counseled regarding risks/benefits of trial of labor versus repeat . ACOG/uptodate education given to patient. 73.7 % likelihood of success per calculator TOLAC consent form signed: [] Plans Covid status: movement and labor precautions reviewed. Flu vaccine: [] Tdap vaccine: declined Rhogam: 28 weeks given LARC form signed: declined Problem list reviewed and updated with the most current plan of care details and appropriate orders placed. Relevant counseling for the gestational age provided. Continue routine care and follow up unless otherwise noted in visit notes/problem list details OB Flowsheet Initial Weight: Not Recorded Date -?-?-?-?-?-?-?-?-?-?-?-?- EGA Weight BP Urine Prot -?-?-?-?-?-?-?-?-?-?-?-?- Glucose FHR FuHt Pres Dilation -?-?-?-?-?-?-?-?-?-?-?-?- Effaced St Visit Note 10/07/23 -?-?-?-?-?-?-?-?-?-?-?-?- 8w 3d 192 lb 2 oz Negative -?-?-?-?-?-?-?-?-?-?-?-?- Negative 171 -?-?-?-?-?-?-?-?-?-?-?-?- kw- CRL 21 measu ring 9.0 wks. within 5 days of ANDI. EDC not changed. NIPT next visit 11/04/23 -?-?-?-?-?-?-?-?-?-?-?-?- 12w 3d 193 lb 8 oz 106/74 Nega tive -?-?-?-?-?-?-?-?-?-?-?-?- Negative 158 -?-?--?-?-?-?-?-?-?-?-?-?- KW-no vb [place] [facility] labs today 12/02/23 -?-?-?-?-?-?-?-?-?-?-?-?- 16w 3d 196 lb 2 oz 109/68 Nega tive -?-?-?-?-?-?-?-?-?-?-?-?- Negative 140 -?-?-?-?-?-?-?-?-?-?-?-?- JV- no lof or va ginal bleeding. starting to feel some movements. she is tearful today because was not able to find heart beat without the ultraound. We discussed vs vag del. first baby was OP and was a hard delivery. 2nd she only got to 5 cm and she was taken for a section for FITL. 01/04/24 -?-?-?-?-?-?-?-?-?-?-?-?- 21w 1d 193 lb 4 oz 98/64 Nega tive -?-?-?-?-?-?-?-?-?-?-?-?- Negative 147 -?-?-?-?-?-?-?-?-?-?-?-?- MH-No VB, LOF. G ood FM. Discussed Rh neg and rhogam. She states her daughter is Rh positive. Pt prefers 02/01/24 -?-?-?-?-?-?-?-?-?-?-?-?- 25w 1d 199 lb 99/66 Negative -?-?--?-?-?-?-?-?-?-?-?-?- Negative 144 -?-?-?-?-?-?-?-?-?-?-?-?- JV- no spotting, bh contractions happening. taking electrolyte mix. asking georgi about rh testing. 03/01/24 -?-?-?-?-?-?-?-?-?-?-?-?- 29w 2d 204 lb 108/71 -?-?-?-?-?-?-?-?-?-?-?-?- 145 30 -?-?-?-?-?-?-?-?-?-?-?-?- SM- no vb lof go od fm no regular ctx discussed 3 hour gct 03/14/24 -?-?-?-?-?-?-?-?-?-?-?-?- 31w 1d 206 lb 99/65 Negative -?-?-?-?-?-?-?-?-?-?-?-?- Negative 139 31.5 Breech -?-?-?-?-?-?-?-?-?-?-?-?- JV- no lof ,vagi nal bleeding, or dec fm. still needs to do 3 hr. states has been playing phone tag with lab and plans to go down today to make appt. plan 36 week scan for size and position. still considering but has been breech. 03/29/24 -?-?-?-?-?-?-?-?-?-?-?-?- 33w 2d 207 lb 108/71 Negative -?-?-?-?-?-?-?-?-?-?-?-?- Negative 140 34 -?-?-?-?-?-?-?-?-?-?-?-?- SM- no vb lof go od fm no regular ctx 04/12/24 -?-?-?-?-?-?-?-?-?-?-?-?- 35w 2d 208 lb 113/73 Negative -?-?-?-?-?-?-?-?-?-?-?-?- Negative 150 35 -?-?-?-?-?-?-?-?-?-?-?-?- SM- no vb lof go od fm no regular ctx 04/25/24 -?-?-?-?-?-?-?-?-?-?-?-?- 37w 1d 209 lb 8 oz 117/77 Nega tive -?-?-?-?-?-?-?-?-?-?-?-?- Negative 150 38 Cephalic -?-?-?-?-?-?-?-?-?-?-?-?- SM- SM- no vb lof good fm no reg ular ctx reveiwed measurement ordered 1 hour gct 05/04/24 -?-?-?-?-?-?-?-?-?-?-?-?- 38w 3d 212 lb 8 oz 110/72 Nega tive -?-?-?-?-?-?-?-?-?-?-?-?- Negative 140 40 Cephalic 1 -?-?-?-?-?-?-?-?-?-?-?-?- 20 -3 SM- no vb lof good fm no regualr ctx SM- no vb lof good fm no reg ualr ctx discussed scheduling cs at 40 weeks if no sponataneous labor prio SM- no vb lof good fm no reg ualr ctx discussed scheduling cs at 40 weeks if no sponataneous labor prior. all BS WNL. will stop checking 05/10/24 -?-?-?-?-?-?-?-?-?-?-?-?- 39w 2d 214 lb 108/76 -?-?-?-?-?-?-?-?-?-?-?-?- 125 41 Cephalic -?-?-?-?-?-?-?-?-?-?-?-?- JV- planning rep eat section if no on tuesday next week. pt is requesting exparel ROS Constitutional Constitutional: Denies change in weight, fatigue, fever(s), headache(s), poor appetite or weakness Eyes Eyes: Denies blurry vision, change in vision, seeing flashes or spots in vision ENT HEENT: Denies dizziness, headache(s), loss taste/smell or sore throat Cardiovascular Cardiovascular: Denies chest pain, dizziness, dyspnea, irregular heart rhythm, leg edema, palpitations, rapid heart rate or vomiting Respiratory/Chest Respiratory/Chest: Denies chest tightness, cough, dyspnea or breast pain Gastrointestinal Gastrointestinal: Denies abdominal pain, anorexia, constipation, cramping, diarrhea, hemorrhoids, vomiting or weight changes Genitourinary Genitourinary: Denies dysuria, flank pain, genital lesions, genital pain, urinary frequency or urinary urgency Musculoskeletal Musculoskeletal: Denies back pain, difficulty walking, joint pain, limited range of motion, muscle cramps or numbness Integumentary Integumentary: Denies lesions or unusual bruising Neurologic Neurologic: Denies abnormal movements, abnormal speech, dizziness, numbness, seizure-like activity or syncope Psychiatric Psychiatric: Denies anxiety, behavioral changes, change in appetite, change in libido, cognitive impairment, confusion, depression, difficulty concentrating, hallucinations or suicidal thoughts Endocrine Endocrinology: Denies excessive sweating, polydipsia or polyuria Hematologic/Lymphatic Hematologic/Lymphatic: Denies easy bleeding, easy bruising or lymphadenopathy Allergic/Immunologic Allergic/Immunologic: Denies itchy eyes, lip swelling, seasonal rhinorrhea, rhinitis, throat swelling, tongue swelling, eczemia, wheezing or asthma Vital Signs Vital Signs Vital Signs: 05/15/24 05:34 05/15/24 05:34 05/15/24 05:34 Temperature Temperature Source Temporal Pulse Rate 99 Respiratory Rate Blood Pressure 109/74 Blood Pressure Mean BP Systolic 109 BP Diastolic 74 Blood Pressure Source Blood Pressure Position Blood Pressure Location Pulse Ox Oxygen Delivery Method 05/15/24 05:34 05/15/24 05:34 05/15/24 05:34 Temperature 97.4 F L Temperature Source Pulse Rate Respiratory Rate 16 Blood Pressure Blood Pressure Mean BP Systolic BP Diastolic Blood Pressure Source Blood Pressure Position Blood Pressure Location Pulse Ox 98 Oxygen Delivery Method 05/15/24 06:01 Temperature 97.4 F L Temperature Source Temporal Pulse Rate 99 Respiratory Rate 16 Blood Pressure 109/74 Blood Pressure Mean 85 BP Systolic BP Diastolic Blood Pressure Source Monitor Blood Pressure Position Semi-Fowlers Blood Pressure Location Left Arm Pulse Ox 98 Oxygen Delivery Method Room Air Weight Weight: 209 lb 7.026 oz Body Mass Index (BMI) 37.0 Physical Exam Const alert, oriented x3, no apparent distress and healthy appearing General Appearance: cooperative; Negative for anxious HEENT normocephalic Face and Sinus: normal facial exam Eyes EOMs intact bilaterally and no scleral icterus General Eye: normal appearance of both eyes Neck full ROM and supple Lymph Lymphatic: no lymphadenopathy noted Chest Chest: abnormal inspection of the chest Resp normal respiratory effort Effort and Inspection: able to speak in complete sentences Cardio regular rate GI soft to palpation and non-tender Inspection: gravid Palpation: soft; Negative for tender Back/Spine no CVA tenderness Extremity normal to inspection, full ROM and no clubbing, cyanosis or edema General Extremity: Negative for calf tenderness or edema Skin Lesions: no lesions Rashes: no rashes Psych mental status grossly normal Labs Labs Labs: Blood Type O NEGATIVE Antibody Screen NEGATIVE Hct 37.1 % (37-47) Hgb 12.1 g/dL (12.0-15.0) Obstetrics Ultrasound Syphilis Total Ab Non-reactive Rubella IgG Antibody Reactive (Nonreactive) Hep Bs Antigen Non-Reactive (Nonreactive) Hepatitis C Antibody Non-Reactive (Nonreactive) Chlamydia DNA ([place]RIANA) Negative (Negative) N.gonorrhoeae DNA (ADRIANA) Negative (Negative) HIV 1&2 Antibody Non-Reactive (Nonreactive) Glucose 1 Hr 50 gm 150 mg/dL (70-140) H Gest Glucose Tolerance MG/DL Assessment & Plan (1) Abnormal glucose affecting : COMMENT: 3 hr gct normal. 1 hr repeated due to large AC, still abnl 1 hr gct. all FBS and 2 hr PPG WNL. discussed deliveyr by 40 weeks (2) Anemia affecting in third trimester: COMMENT: borderline- recommend iron (3) Obesity affecting : QUALIFIERS: Trimester: second trimester Obesity type affecting : unspecified obesity Qualified Code(s): O99.212 - Obesity complicating , second trimester COMMENT: early A1C-nl (4) Former smoker, stopped smoking in distant past: (5) Previous section: COMMENT: interested in /patient prefers, discussed delivery by 41 (6) Maternal anesthesia complication: COMMENT: BP dropped, required medication to bring up (7) Rh negative status during : QUALIFIERS: Trimester: second trimester Qualified Code(s): O26.892 - Other specified related conditions, second trimester; Z67.91 - Unspecified blood type, Rh negative COMMENT: Rhogam injection @ 28 wks & prn bleeding Daughter is Rh pos. unknown (8) Supervision of high-risk : QUALIFIERS: Trimester: second trimester Qualified Code(s): O09.92 - Supervision of high risk , unspecified, second trimester COMMENT: PRR, , ANDI 05/15, boy PC Baldomero Meyer, Luis (9) : QUALIFIERS: Weeks of gestation: 39 weeks Qualified Code(s): Z3A.39 - 39 weeks gestation of COMMENT: gbs neg. discussed genetic & carrier testing, NIPT low risk. nl anatomy (10) Depression: QUALIFIERS: Depression Type: unspecified Qualified Code(s): F32.A - Depression, unspecified (11) Anxiety: PLAN: Plan After discussing the patient's diagnosis and treatment plan options, patient wishes to proceed with surgical management. I have discussed with the patient the risks, benefits, and alternatives of the procedure which include but are not limited to risks of anesthesia, bleeding, infection, possible damage to bowel, bladder, or surrounding vasculature which could lead to additional surgery to evaluate any complications. Patient agrees to procedure and wishes to proceed. ACOG/uptodate references given for additional information regarding procedure.
[2024-05-15] MEDS: Cefazolin 2 GM in 0.9% Normal Saline (100mL Bag) 100 ML IV (07:24)
--- NOTE | 2024-05-15 08:28 | OP.PCM_ITS ---
Assessment & Plan (1) Abnormal glucose affecting : COMMENT: 3 hr gct normal. 1 hr repeated due to large AC, still abnl 1 hr gct. all FBS and 2 hr PPG WNL. discussed deliveyr by 40 weeks (2) Anemia affecting in third trimester: COMMENT: borderline- recommend iron (3) Obesity affecting : QUALIFIERS: Trimester: second trimester Obesity type affecting : unspecified obesity Qualified Code(s): O99.212 - Obesity complicating , second trimester COMMENT: early A1C-nl (4) Former smoker, stopped smoking in distant past: (5) Previous section: COMMENT: interested in /patient prefers, discussed delivery by 41 (6) Maternal anesthesia complication: COMMENT: BP dropped, required medication to bring up (7) Rh negative status during : QUALIFIERS: Trimester: second trimester Qualified Code(s): O26.892 - Other specified related conditions, second trimester; Z67.91 - Unspecified blood type, Rh negative COMMENT: Rhogam injection @ 28 wks & prn bleeding Daughter is Rh pos. unknown (8) Supervision of high-risk : QUALIFIERS: Trimester: second trimester Qualified Code(s): O09.92 - Supervision of high risk , unspecified, second trimester COMMENT: PRR, , ANDI 05/15, boy Baldomero Rod, Luis (9) : QUALIFIERS: Weeks of gestation: 39 weeks Qualified Code(s): Z3A.39 - 39 weeks gestation of COMMENT: gbs neg. discussed genetic & carrier testing, NIPT low risk. nl anatomy (10) Depression: QUALIFIERS: Depression Type: unspecified Qualified Code(s): F32.A - Depression, unspecified (11) Anxiety: Maternal Data Information ANDI Calculator Estimated Delivery Date Method Current WG Current Estimate 05/15/24 LMP (Certain) 40w 0d Final ANDI: 05/15/24 Details Operative Information Pre-Operative Diagnosis: @ 40 weeks 0 days, prior section, declines Post-Operative Diagnosis: @ 40 weeks 0 days, prior section, declines Indications for : Repeat Elective Classification: Scheduled Procedure Type: low transverse Type of Anesthesia: Spinal Special Medications: exparel Antibiotic Given: Ancef 2 grams IV x1 Estimated Blood Loss: 600cc Fluids Replaced: 1 liter Procedure Start Time: 07:48 Procedure Stop Time: 08:36 Time of Delivery: 07:56 Findings Description of Procedure: Procedure: The patient was brought to the operating room and spinal anesthesia was found to be adequate. She was prepped and draped in the normal sterile fashion and was placed in a dorsal supine position with a leftward tilt. Pfannenstiel skin incision was made with a scalpel and carried through to the underlying layers. The fascia was nicked in the midline and extended laterally using Britton scissors. The anterior aspect of the fascia was grasped with Dimas clamps and the underlying rectus muscles dissected off using the Metzenbaum scissors. The inferior aspect the fascia was also grasped with Dimas clamps and the underlying rectus muscle dissected off with the Metzenbaum scissors. The rectus muscles were in the midline. Peritoneum was entered sharply. The uterus was identified and a bladder blade was inserted into the abdomen. Bladder flap was created off the uterus using Metzenbaum scissors. A transverse incision was made with a scalpel and extended laterally manually. The 's head was grasped with the help of my retail assistant manager and fundal pressure the was delivered through the uterine incision without difficulty. The mouth and nares were bulb suctioned. After a 30 second delay the cord was clamped and cut. The was handed off to the awaiting exterior designer for routine assessment. Placenta was delivered manually without difficulty. A true knot was noted in the cord. The uterus was exteriorized and cleared of all clots and debris. Incision was closed with an 0 Vicryl suture in a running locked fashion. Second layer of 1-0 monocryl suture was used in imbricating manner to create excellent closure and hemostasis. The uterus was returned to the abdomen. The gutters were cleared of all clots and debris. The peritoneum was closed in a pursestring pattern using a 3-0 Vicryl suture. This muscle was reapproximated with a 3-0 Vicryl. Next, 60cc Exparel plus 0.5 % bupivocaine was injected into the muscle and fascia. The fascia was closed with an 0-PDS suture. Subcutaneous tissue layer was closed using a plain gut suture. The skin was closed with a 4-0 Monocryl subcuticular stitch. The skin was also sealed with surgical glue. The patient tolerated the procedure well sponge lap and needle counts were correct at each tissue closure plane and the patient is now being brought to the recovery room in stable condition Presentation: Positive for Vertex Amniotic Fluid Description: Clear Placental Delivery Description: Manual Removal Placenta Disposition: [facility] Cord Vessel Description: 3 Vessels Cord Entanglement: None A Gender: Male (1 minute): 8 (5 minute): 9 Delayed Cord Clamping: Yes Complications Risks of Surgery Discussed w/Patient: Anesthesia Risks, Infection, Need for Future C-Sections and Injury to surrounding structure(s) including bowel and bladder Multi Select Codes Urinary/Genital Urinary/Genital CPT Codes: 56912 Delivery [facility]
[2024-05-15] MEDS: BUPIVACAINE LIPOSOME/PF 20 ML VIAL OPERA.SITE (08:30)
[2024-05-15] MEDS: Bupiv/Epi 0.5% Mpf 30 ML Vial INFILT (08:30)
[2024-05-15 08:38] LABS: Syphilis Antibodies Non-reactive
--- NOTE | 2024-05-15 08:38 | DCINST_ITS ---
Discharge Instructions Diet Discharge Diet: No restrictions Activity Discharge Activity: May Not Drive (for 2 weeks or while taking narcotic pain medications.), May Shower and May Take a Tub Bath (in 7 days.) May resume sexual activity in: 4-6 weeks Weight Bearing Status: Full weight bearing Lifting Restrictions: 20 pounds Dressing / Incision Call your doctor if your incision/area has: Continuous Slow Oozing, Sudden Increased Bleeding, Increased Pain/ Swelling, Increased Redness and Foul Smelling Discharge Call your doctor if you observe: Fever of 101 or Higher and Using more than 1 pad per hour Suture Line Care: Avoid Pulling/Pushing and Avoid Pinching/Bending Cleanse incision/area with: Soap & Water and Keep Dressing Clean & Dry Follow Up Care Please Follow Up With: Rebecca Clemens DO When: Call [phone] to make an appointment for an incision check in 1-2 weeks. Test Results: Test results from this visit will be discussed in further detail at your follow- up appointment, if applicable. Discharge Plan Admission Admit Date/Time: 05/15/24 05:18 Primary Reason for Your Visit: section Attending Provider: Rebecca Clemens Primary Care Provider: Barbara Pritchard Primary Discharge Orders/Prescriptions Prescriptions: New ibuprofen 800 mg tablet 800 mg PO Q8H PRN (Reason: pain) Qty: 30 0RF oxycodone-acetaminophen [Percocet] 5-325 mg tablet 1 tab PO Q4H PRN (Reason: pain) 7 Days Qty: 20 0RF Rx Instructions: 1-2 tabs q 4 hrs as needed for pain Continued Digestive Advantage Probio-Pre 800 million cell tablet 1 cell PO DAILY PNV-[place] 28-1-300 mg capsule 1 cap PO DAILY Referrals / Follow Up: Care Physician,Barbara Primary [Primary Care Provider] - Disposition Disposition (needs filled in before D/C Order can be placed): Home, Self Care
[2024-05-15] MEDS: Oxytocin 15 Units/NS 250ml 15 UNITS/250 ML IV.SOLN 83 UNITS IV (09:00)
[2024-05-15] MEDS: Ketorolac 30 MG/ML Syringe IV ×3 (09:24→21:05)
[2024-05-15] MEDS: Ondansetron 4 MG/2 ML Vial IV (10:15)
[2024-05-15 11:47] LABS: Pathologist Review Reviewed
--- NOTE | 2024-05-15 12:29 | NURSING ---
1215 pt continuing to have symptoms of nausea, vomiting, and feeling dizzy every time she moves in bed- pt has not been able to hold any water or crackers down- dr husain called and notified- new orders received
[2024-05-15] MEDS: Scopolamine 1mg/72hr Patch 1 PATCH TD (12:47)
[2024-05-15] MEDS: Lactated Ringers 1,000 ML 100 ML IV (13:23)
--- NOTE | 2024-05-15 15:30 | NURSING ---
1500 pt states that she is feeling a little better- she states that she is able to lift her head off her pillow now without feeling dizzy or nauseated- pt given some soup to try and eat
--- NOTE | 2024-05-15 17:22 | NURSING ---
1700 pt able to get OOB with help and ambulate to the chair- pt states she still feels off but is able to move without dizziness or vomiting
[2024-05-15] MEDS: 0.9% Saline Lock 10 ML Syringe IV (21:06)
[2024-05-16] MEDS: 0.9% Saline Lock 10 ML Syringe IV (02:53)
[2024-05-16] MEDS: Ketorolac 30 MG/ML Syringe IV (02:53)
[2024-05-16 03:00] VITALS: BP 92/61; PULSE 72; RESP 16; TEMP 36.7; O2SAT 99
[2024-05-16] MEDS: Acetaminophen 500 MG Tablet 1000 MG PO ×2 (06:01→12:42)
[2024-05-16 06:20] LABS: Hematocrit 30.4 % (37-47); Mean Corp Hgb Conc 32.9 g/dL (32-36); Mean Corpuscular Hgb 29.4 pg (27.0-32.0); Mean Corpuscular Volume 89.4 fL (81-99); Mean Platelet Vol. 10.3 fl (6.2-12.0); Platelet Count 195 K/mm3 (150-450); RBC Distribution Width CV 15.3 % (11.6-14.6); RBC Distribution Width SD 49.6 fl (35.1-43.9); White Blood Count 16.2 K/mm3 (4.4-11.0)
--- NOTE | 2024-05-16 07:52 | PN.OBGYN_ITS ---
Subjective Subjective Patient doing well without complaints. Tolerating PO. Ambulating and voiding without difficulty. Feeding well. Denies chest pain, shortness of breath, calf pain/swelling, fevers, chills, lightheadedness. Objective Data Objective Data Vital Signs: Vital Signs Temp Pulse Resp BP Pulse Ox O2 Del Method 98.0 F 72 16 92/61 99 Room Air 05/16/24 03:00 05/16/24 03:00 05/16/24 03:00 05/16/24 03:00 05/16/24 03:00 05/16/24 03:00 Oxygen Delivery Method Room Air Weight: 209 lb 7.026 oz Body Mass Index (BMI) 37.0 Intake & Output: Intake and Output for Last 24 Hours 05/14/24 05/15/24 05/16/24 23:59 23:59 23:59 Intake Total 4648.17 / 4648.17 Output Total 3750 / 3750 850 / 850 Balance 898.17 / 898.17 -850 / -850 Lab / Micro Data Attestation: I reviewed the patient's lab results. 05/16/24 06:03 Labs: Laboratory Results - last 24 hr 05/15/24 05:35: Diff Path Review Reviewed, Syphilis Total Ab Non-reactive, Blood Type O NEGATIVE, Antibody Screen NEGATIVE 05/16/24 06:03: WBC 16.2 H, RBC 3.40 L, Hgb 10.0 L, Hct 30.4 L, MCV 89.4, MCH 29.4, MCHC 32.9, RDW Std Deviation 49.6 H, RDW Coeff of Sarah 15.3 H, Plt Count 195, MPV 10.3 ROS Constitutional Constitutional: Reports systems reviewed and no addt'l complaints, except as documented; Denies anorexia or headache(s) Cardiovascular Cardiovascular: Reports systems reviewed and no addt'l complaints, except as documented; Denies dizziness, dyspnea, nausea or tachypnea Respiratory/Chest Respiratory/Chest: Reports systems reviewed and no addt'l complaints, except as documented; Denies cough, dyspnea, shortness of breath at rest or tachypnea Gastrointestinal Gastrointestinal: Reports systems reviewed and no addt'l complaints, except as documented; Denies abdominal pain, constipation or nausea Genitourinary Genitourinary: Reports systems reviewed and no addt'l complaints, except as documented; Denies burning urination, difficulty urinating, dysuria, urinary frequency or urinary incontinence Musculoskeletal Musculoskeletal: Reports systems reviewed and no addt'l complaints, except as documented Integumentary Integumentary: Reports systems reviewed and no addt'l complaints, except as documented Neurologic Neurologic: Reports systems reviewed and no addt'l complaints, except as documented; Denies abnormal speech, dizziness or headache(s) Psychiatric Psychiatric: Reports systems reviewed and no addt'l complaints, except as documented Endocrine Endocrinology: Reports systems reviewed and no addt'l complaints, except as documented Hematologic/Lymphatic Hematologic/Lymphatic: Reports systems reviewed and no addt'l complaints, except as documented Physical Exam Const alert, oriented x3 and no apparent distress Neck full ROM Resp normal respiratory effort, normal air movement and no retractions Effort and Inspection: able to speak in complete sentences and symmetric chest movement GI soft to palpation Bladder / Kidney Exam: bladder normal to palpation Uterus Palpation: uterus fundus firm Extremity normal to inspection and full ROM Psych mental status grossly normal, thought process normal and cooperative Assessment & Plan (1) Abnormal glucose affecting : COMMENT: 3 hr gct normal. 1 hr repeated due to large AC, still abnl 1 hr gct. all FBS and 2 hr PPG WNL. discussed deliveyr by 40 weeks (2) Anemia affecting in third trimester: COMMENT: borderline- recommend iron (3) Obesity affecting : QUALIFIERS: Trimester: second trimester Obesity type affecting : unspecified obesity Qualified Code(s): O99.212 - Obesity complicating , second trimester COMMENT: early A1C-nl (4) Former smoker, stopped smoking in distant past: (5) Previous section: COMMENT: interested in /patient prefers, discussed delivery by 41 PLAN: s/p LTCS PPD # 1 1. routine post care 2. breast feeding- support given 3. rh positive 4. rubella immune 5. Discharge home (6) Maternal anesthesia complication: COMMENT: BP dropped, required medication to bring up (7) Rh negative status during : QUALIFIERS: Trimester: second trimester Qualified Code(s): O 26.892 - Other specified related conditions, second trimester; Z67.91 - Unspecified blood type, Rh negative COMMENT: Rhogam injection @ 28 wks & prn bleeding Daughter is Rh pos. unknown (8) Supervision of high-risk : QUALIFIERS: Trimester: second trimester Qualified Code(s): O09.92 - Supervision of high risk , unspecified, second trimester COMMENT: PRR, , ANDI 05/15, boy PC Baldomero Meyer, Luis (9) : QUALIFIERS: Weeks of gestation: 39 weeks Qualified Code(s): Z 3A.39 - 39 weeks gestation of COMMENT: gbs neg. discussed genetic & carrier testing, NIPT low risk. nl anatomy (10) Depression: QUALIFIERS: Depression Type: unspecified Qualified Code(s): F32.A - Depression, unspecified (11) Anxiety: Charges/Coding Multi Select Codes Urinary/Genital Urinary/Genital CPT Codes: No Charge
[2024-05-16] MEDS: Ibuprofen 600 MG Tablet PO ×2 (09:24→15:36)
[2024-05-16] MEDS: Senna/Docusate Sodium 1 Tablet PO (09:25)
[2024-05-16 09:33] VITALS: BP 106/66; PULSE 83; RESP 16; O2SAT 100
[2024-05-16 13:44] VITALS: BP 105/66; PULSE 79; RESP 16; TEMP 37.1; O2SAT 99
== END 2024-05-16 16:00 | disposition home or self-care (01) | DRG 788 ==
PROVIDERS: Admitting Provider Obstetrics & Gynecology; Visit Provider Obstetrics & Gynecology
PROC: 10D00Z1 Extraction of Products of Conception, Low, Open Approach (ICD-10-PCS; CPT 59514; principal; 2024-05-15 07:00)
DX: O34.211 Maternal care for low transverse scar from previous cesarean delivery (principal); O99.214 Obesity complicating childbirth; F32.A Depression, unspecified; F41.9 Anxiety disorder, unspecified; O99.344 Other mental disorders complicating childbirth; Z37.0 Single live birth; Z87.891 Personal history of nicotine dependence; Z67.91 Unspecified blood type, Rh negative; Z3A.40 40 weeks gestation of pregnancy
CPT/HCPCS: 59025; 59050; 85025; 85027; 86780; 86850; 86900; 86901; 87081; 99221; J7120; A4216; G0378; J2405